=== PATIENT | female | born 1960 | race Caucasian/White ===

== ENCOUNTER 2017-02-01 08:36 | Emergency (ER) | payer BC, MEDICAID ==
[~2017-02-01] VITALS: Ht 180.3 cm; Wt 86.2 kg
[~2017-02-01 08:36] MED LIST: ALBU18; AMIT50TA3 PO; GABA300C PO; HYD2I IL; HYDR12.56 PO; NOR7.5T PO; OMEP20TA44 PO; PRAV20TA3 PO; TIZA4CAP5 PO; TOLT4CAP12 PO
[2017-02-01 09:09] VITALS: BP 155/83
== END 2017-02-01 09:29 | disposition home or self-care (01) ==
LOC: ER 08:36
DX: J44.9 Chronic obstructive pulmonary disease, unspecified (principal); I10 Essential (primary) hypertension; E78.5 Hyperlipidemia, unspecified; Z98.51 Tubal ligation status

== ENCOUNTER → 2017-08-21 | Outpatient (CLI) | payer BC, MEDICARE ==
[~2017-08-21] MED LIST changes: +TIZA4CAP PO; -TIZA4CAP5 PO
[2017-08-21 11:15] LABS: Urine Bacteria NONE SEEN /hpf (None Seen); Urine Blood Negative /uL (Negative); Urine Specific Gravity 1.011 (1.001-1.035); Urine WBC 9 /hpf (0 - 5)
[2017-08-21 11:23] LABS: Albumin 3.5 g/dL (3.4-5.0); BUN/Creatinine Ratio 14.3; Bilirubin, Total 0.4 mg/dL (0.2-1.0); Potassium 3.8 mmol/L (3.5-5.1); Total Protein 7.4 g/dL (6.4-8.2)
== END | disposition home or self-care (01) ==
LOC: LAB 10:25
PROVIDERS: ATTEND Family Medicine
DX: I10 Essential (primary) hypertension (principal); K21.9 Gastro-esophageal reflux disease without esophagitis; E78.4 Other hyperlipidemia; M54.42 Lumbago with sciatica, left side; J44.9 Chronic obstructive pulmonary disease, unspecified
CPT/HCPCS: 36415; 80053; 80061; 81001; 82607; 83036; 84443

== ENCOUNTER → 2019-01-19 | Outpatient (CLI) | payer MEDICARE, BC ==
[2019-01-19 09:38] LABS: Basophils # (auto) 0 uL; Basophils % (auto) 0.7 % (0.0-2.0); Eosinophils # (auto) 0.2 uL; Eosinophils % (auto) 3.3 % (0.0-7.0); Hematocrit 47.6 % (36.0-46.0); Lymphocytes # (auto) 1.8 uL; Lymphocytes % (auto) 31.6 % (10.0-50.0); Mean Corpuscular Hemoglobin 29.9 pg (28.0-32.0); Mean Corpuscular Hgb Conc. 33.6 g/dL (32.0-36.0); Monocytes # (auto) 0.4 uL; Monocytes % (auto) 7.4 % (0.0-12.0); Neutrophils # (auto) 3.2 uL; Nucleated Red Blood Cells % 0.1 %; Platelet Count (auto) 276 10^3/uL (140-450); Red Blood Cells 5.35 10^6/uL (4.0-5.20); White Blood Cell 5.6 10^3/uL (4.4-10.8)
[2019-01-19 09:43] LABS: Urine Amorphous Crystal MOD /hpf (None Seen); Urine Bacteria FEW /hpf (None Seen); Urine Blood Negative /uL (Negative); Urine Specific Gravity 1.013 (1.001-1.035); Urine WBC 4 /hpf (0 - 5)
[2019-01-19 10:11] LABS: Potassium 3.6 mmol/L (3.5-5.1)
[2019-01-19 10:18] LABS: Albumin 3.4 g/dL (3.4-5.0); BUN/Creatinine Ratio 15.3; Bilirubin, Total 0.4 mg/dL (0.2-1.0); Total Protein 6.9 g/dL (6.4-8.2)
== END | disposition home or self-care (01) ==
LOC: LAB 09:09
PROVIDERS: ATTEND Family Medicine
DX: I10 Essential (primary) hypertension (principal); E78.49 Other hyperlipidemia; M54.42 Lumbago with sciatica, left side; E66.01 Morbid (severe) obesity due to excess calories; Z96.89 Presence of other specified functional implants
CPT/HCPCS: 36415; 80053; 80061; 81001; 84443; 85025

== ENCOUNTER → 2020-06-19 | Outpatient (CLI) | payer BC ==
[~2020-06-19] MED LIST changes: +TOLT4CAP PO; -TOLT4CAP12 PO
[2020-06-19 08:32] LABS: Basophils # (auto) 0 10 ^3/uL (0-0.2); Basophils % (auto) 0.7 % (0.0-2.0); Eosinophils # (auto) 0.1 10 ^3/uL (0-0.8); Eosinophils % (auto) 1.7 % (0.0-7.0); Hematocrit 47.1 % (36.0-46.0); Hemoglobin 15.7 g/dL (12.2-16.2); Lymphocytes # (auto) 1.9 10 ^3/uL (0.4-5.4); Lymphocytes % (auto) 30.5 % (10.0-50.0); Mean Corpuscular Hemoglobin 28.7 pg (28.0-32.0); Mean Corpuscular Hgb Conc. 33.4 g/dL (32.0-36.0); Mean Corpuscular Volume 85.9 fL (80.0-100.0); Monocytes # (auto) 0.4 10 ^3/uL (0-1.3); Monocytes % (auto) 6.3 % (0.0-12.0); Neutrophils # (auto) 3.7 10 ^3/uL (1.6-8.6); Neutrophils % (auto) 60.8 % (37.0-80.0); Nucleated Red Blood Cells % 0.1 %; Platelet Count (auto) 307 10^3/uL (140-450); Red Blood Cells 5.48 10^6/uL (4.0-5.20); Red Cell Distribution Width 13.7 % (11.8-14.3); White Blood Cell 6.1 10^3/uL (4.4-10.8)
[2020-06-19 08:37] LABS: Urine Amorphous Crystal FEW /hpf (None Seen); Urine Bacteria NONE SEEN /hpf (None Seen); Urine Blood Negative /uL (Negative); Urine Specific Gravity 1.021 (1.001-1.035); Urine WBC 17 /hpf (0 - 5)
[2020-06-19 09:09] LABS: Potassium 3.9 mmol/L (3.5-5.1)
[2020-06-19 09:21] LABS: Albumin 3.5 g/dL (3.4-5.0); BUN/Creatinine Ratio 14.7; Bilirubin, Total 0.5 mg/dL (0.2-1.0); Calcium 9.5 mg/dL (8.5-10.1); Total Protein 7.4 g/dL (6.4-8.2)
== END | disposition home or self-care (01) ==
LOC: LAB 08:07
PROVIDERS: ATTEND Family Medicine
DX: I10 Essential (primary) hypertension (principal); E78.49 Other hyperlipidemia; M54.42 Lumbago with sciatica, left side; E66.3 Overweight; K21.9 Gastro-esophageal reflux disease without esophagitis; G47.00 Insomnia, unspecified; Z96.89 Presence of other specified functional implants
CPT/HCPCS: 36415; 80053; 80061; 81001; 82306; 84443; 85025

== ENCOUNTER 2020-07-26 08:02 | Emergency (ER) | payer BC, MEDICAID ==
[~2020-07-26] VITALS: Ht 175.3 cm; Wt 83.9 kg
[2020-07-26 08:14] VITALS: BP 144/92
[2020-07-26] MEDS ORDERED: KETOROLAC TROMETH 60MG/2ML VIAL IM ONE (08:30)
== END 2020-07-26 09:46 | disposition home or self-care (01) ==
LOC: ER 08:02
DX: S16.1XXA Strain of muscle, fascia and tendon at neck level, initial encounter (principal); S39.012A Strain of muscle, fascia and tendon of lower back, initial encounter; S46.911A Strain of unspecified muscle, fascia and tendon at shoulder and upper arm level, right arm, initial encounter; I10 Essential (primary) hypertension; E78.5 Hyperlipidemia, unspecified; Z79.899 Other long term (current) drug therapy; X58.XXXA Exposure to other specified factors, initial encounter; Y93.89 Activity, other specified; Y92.89 Other specified places as the place of occurrence of the external cause; Y99.8 Other external cause status
CPT/HCPCS: 70450; 72040; 72100; 73030; 96372; 99284; J1885

== ENCOUNTER → 2021-01-15 | Day surgery (SDC) | payer BC, MEDICAID ==
[2021-01-11 12:33] LABS: Basophils # (auto) 0 10 ^3/uL (0-0.2); Basophils % (auto) 0.4 % (0.0-2.0); Eosinophils # (auto) 0.2 10 ^3/uL (0-0.8); Eosinophils % (auto) 2.7 % (0.0-7.0); Hemoglobin 15.7 g/dL (12.2-16.2); Lymphocytes % (auto) 33.8 % (10.0-50.0); Mean Corpuscular Volume 85.3 fL (80.0-100.0); Monocytes # (auto) 0.4 10 ^3/uL (0-1.3); Monocytes % (auto) 7.1 % (0.0-12.0); Neutrophils # (auto) 3.2 10 ^3/uL (1.6-8.6); Nucleated Red Blood Cells % 0.1 %; Red Cell Distribution Width 13.9 % (11.8-14.3); White Blood Cell 5.8 10^3/uL (4.4-10.8)
[2021-01-11 12:56] LABS: Urine Bacteria NONE SEEN /hpf (None Seen); Urine Blood Negative /uL (Negative); Urine Specific Gravity 1.005 (1.001-1.035); Urine WBC 1 /hpf (0 - 5)
[2021-01-11 15:30] LABS: Albumin 3.4 g/dL (3.4-5.0); Calcium 9.3 mg/dL (8.5-10.1); Potassium 5.2 mmol/L (3.5-5.1)
[2021-01-11 15:33] LABS: BUN/Creatinine Ratio 15.8
[2021-01-11 15:35] LABS: Bilirubin, Total 0.4 mg/dL (0.2-1.0)
[~2021-01-15] VITALS: Ht 175.3 cm; Wt 90.7 kg
[~2021-01-15] MED LIST changes: -AMIT50TA3 PO; +AMIT50TA5 PO; +BUPIVACAINE 0.5% P/F INJ 10 ML VIAL ONE; +BUPIVACAINE HCL 50 ML ONE; +CYCL-839 PO; +DexAMETHasone SOD PHOS 10MG/1ML VIAL INJ ONE; +EPINEPHrine HCL 1 MG/1 ML AMP ONE; +HYDROmorphone HCL 2 MG/ML VL IV ONE; +IPRA0.00 IN; +LABETALOL HCL 5 MG/ML 4ML SYRINGE IV PRN; +LIDOCAINE 1% (LOCAL ANESTH.) PF 5ml SDV ONE; +MEPERIDINE HCL (25 MG/ML) 1ML VIAL ONE; +MIDAZOLAM HCL 2MG/2ML 2ml VIAL (1mg/ml) IV PRN; +MIDAZOLAM HCL 2MG/2ML 2ml VIAL (1mg/ml) ONE; +MORPHINE SULFATE 4 MG/ML SYR/VIAL IV PRN; +MORPHINE SULFATE INJECTION 2 MG/ML SYRG ONE; +ONDANSETRON HCL 4 MG/2 ML VIAL IV PRN; +ONDANSETRON HCL 4 MG/2 ML VIAL ONE; +PROPOFOL 10 MG/ML 20 ML IV ONE; +SUCCINYLCHOLINE CHLORIDE 20 MG/ML 10ML VIAL IV ONE; -TIZA4CAP PO; -TOLT4CAP PO; +ceFAZolin 1GM/50ML 100 ML IV ONE; +ePHEDrine SULFATE 50 MG/ML AMP IV PRN; +fentaNYL CITRATE 100 MCG/2 ML VL ONE; +fentaNYL CITRATE 5 ML ONE
[2021-01-15] MEDS: HYDROmorphone HCL 2 MG/ML VL IV PRN ×3 (12:23→12:53)
[2021-01-15 15:00] VITALS: BP 162/76
== END | disposition home or self-care (01) ==
LOC: SUR 08:19
PROVIDERS: ATTEND Orthopaedic Surgery Sports Medicine
DX: M75.121 Complete rotator cuff tear or rupture of right shoulder, not specified as traumatic (principal); S46.211A Strain of muscle, fascia and tendon of other parts of biceps, right arm, initial encounter; S43.401A Unspecified sprain of right shoulder joint, initial encounter; M94.211 Chondromalacia, right shoulder; M25.811 Other specified joint disorders, right shoulder; M65.9 Synovitis and tenosynovitis, unspecified; F41.9 Anxiety disorder, unspecified; F32.9 Major depressive disorder, single episode, unspecified; J44.9 Chronic obstructive pulmonary disease, unspecified; I10 Essential (primary) hypertension; E78.5 Hyperlipidemia, unspecified; I20.9 Angina pectoris, unspecified; G89.18 Other acute postprocedural pain; K21.9 Gastro-esophageal reflux disease without esophagitis; Z82.49 Family history of ischemic heart disease and other diseases of the circulatory system; Z80.9 Family history of malignant neoplasm, unspecified; Z98.890 Other specified postprocedural states; Z79.899 Other long term (current) drug therapy; Z20.822 Contact with and (suspected) exposure to COVID-19; X58.XXXA Exposure to other specified factors, initial encounter; Y93.89 Activity, other specified; Y92.89 Other specified places as the place of occurrence of the external cause; Y99.8 Other external cause status
CPT/HCPCS: 29826; 29827; 36415; 80053; 81001; 85025; C1713; J0171; J0330; J0690; J1100; J1170; J2175; J2250; J2270; J2405; J2704; J3010; J3490; U0003; A4565

== ENCOUNTER 2021-01-19 10:34 | Emergency (ER) | payer BC, MEDICAID ==
[~2021-01-19] VITALS: Ht 175.3 cm; Wt 90.7 kg
[~2021-01-19 10:34] MED LIST changes: -BUPIVACAINE 0.5% P/F INJ 10 ML VIAL ONE; -BUPIVACAINE HCL 50 ML ONE; -DexAMETHasone SOD PHOS 10MG/1ML VIAL INJ ONE; -EPINEPHrine HCL 1 MG/1 ML AMP ONE; -HYDROmorphone HCL 2 MG/ML VL IV ONE; -LABETALOL HCL 5 MG/ML 4ML SYRINGE IV PRN; -LIDOCAINE 1% (LOCAL ANESTH.) PF 5ml SDV ONE; -MEPERIDINE HCL (25 MG/ML) 1ML VIAL ONE; -MIDAZOLAM HCL 2MG/2ML 2ml VIAL (1mg/ml) IV PRN; -MIDAZOLAM HCL 2MG/2ML 2ml VIAL (1mg/ml) ONE; -MORPHINE SULFATE 4 MG/ML SYR/VIAL IV PRN; -MORPHINE SULFATE INJECTION 2 MG/ML SYRG ONE; -ONDANSETRON HCL 4 MG/2 ML VIAL IV PRN; -ONDANSETRON HCL 4 MG/2 ML VIAL ONE; -PROPOFOL 10 MG/ML 20 ML IV ONE; -SUCCINYLCHOLINE CHLORIDE 20 MG/ML 10ML VIAL IV ONE; -ceFAZolin 1GM/50ML 100 ML IV ONE; -ePHEDrine SULFATE 50 MG/ML AMP IV PRN; -fentaNYL CITRATE 100 MCG/2 ML VL ONE; -fentaNYL CITRATE 5 ML ONE
[2021-01-19] MEDS ORDERED: PROMETHAZINE HCL 25 MG/ML 1ML IM ONE (12:00)
[2021-01-19] MEDS ORDERED: MEPERIDINE HCL (50 MG/ML) 1 ML VIAL IM ONE (12:00)
[2021-01-19 12:32] VITALS: BP 135/84
== END 2021-01-19 12:34 | disposition home or self-care (01) ==
LOC: ER 10:34
DX: G89.18 Other acute postprocedural pain (principal); M25.511 Pain in right shoulder; I10 Essential (primary) hypertension; E78.5 Hyperlipidemia, unspecified; J44.9 Chronic obstructive pulmonary disease, unspecified; Z98.51 Tubal ligation status
CPT/HCPCS: 96372; 99284; J2175; J2550

== ENCOUNTER → 2021-01-23 | Outpatient (CLI) | payer BC, MEDICAID ==
[~2021-01-23] MED LIST changes: +DOXY-286 PO; +LISI20TA28 PO; +PERCOT PO
== END | disposition home or self-care (01) ==
LOC: LAB 11:48
PROVIDERS: ATTEND Orthopaedic Surgery Sports Medicine
DX: Z98.890 Other specified postprocedural states (principal)
CPT/HCPCS: 87075; 87077; 87186; 87205

== ENCOUNTER 2021-02-06 06:19 | Inpatient (IN) | payer BC, MEDICAID ==
[2021-02-04 15:00] LABS: Basophils # (auto) 0.1 10 ^3/uL (0-0.2); Eosinophils # (auto) 0.1 10 ^3/uL (0-0.8); Eosinophils % (auto) 0.9 % (0.0-7.0); Lymphocytes # (auto) 2.6 10 ^3/uL (0.4-5.4); Monocytes # (auto) 0.6 10 ^3/uL (0-1.3)
[2021-02-04 15:01] LABS: Basophils % (auto) 0.8 % (0.0-2.0); Hematocrit 38.7 % (36.0-46.0); Lymphocytes % (auto) 27.2 % (10.0-50.0); Mean Corpuscular Hemoglobin 27.6 pg (28.0-32.0); Mean Corpuscular Hgb Conc. 33.7 g/dL (32.0-36.0); Mean Corpuscular Volume 81.7 fL (80.0-100.0); Monocytes % (auto) 6.6 % (0.0-12.0); Neutrophils # (auto) 6.1 10 ^3/uL (1.6-8.6); Neutrophils % (auto) 64.5 % (37.0-80.0); Red Blood Cells 4.73 10^6/uL (4.0-5.20); White Blood Cell 9.4 10^3/uL (4.4-10.8)
[2021-02-04 15:08] LABS: INR 1.07 (0.9-1.15); Partial Thromboplastin Time 30.3 sec (23.6-33.0)
[2021-02-04 15:57] LABS: Urine Bacteria NONE SEEN /hpf (None Seen); Urine Blood Negative /uL (Negative); Urine Specific Gravity 1.014 (1.001-1.035); Urine WBC 14 /hpf (0 - 5)
[2021-02-04 16:07] LABS: Potassium 4.4 mmol/L (3.5-5.1)
[2021-02-04 16:20] LABS: Albumin 2.6 g/dL (3.4-5.0); BUN/Creatinine Ratio 15.5; Bilirubin, Total 0.3 mg/dL (0.2-1.0); CRP High Sensitivity 5.82 mg/dL (< 0.3); Calcium 8.9 mg/dL (8.5-10.1); Total Protein 7.5 g/dL (6.4-8.2)
[~2021-02-06] VITALS: Ht 175.3 cm; Wt 96.0 kg
[~2021-02-06 06:19] MED LIST changes: -ALBU18; -DOXY-286 PO; -LISI20TA28 PO; -PERCOT PO
[2021-02-06] MEDS ORDERED: SUCCINYLCHOLINE CHLORIDE 20 MG/ML 10ML VIAL IV ONE (06:55)
[2021-02-06] MEDS ORDERED: ROCURONIUM 10MG/ML 10ML VIAL IV ONE (06:55)
[2021-02-06] MEDS ORDERED: MORPHINE SULFATE 4 MG/ML SYR/VIAL IV PRN (07:15)
[2021-02-06] MEDS ORDERED: METOCLOPRAMIDE HCL 5MG/ml INJ 2ml VIAL IV PRN (07:15)
[2021-02-06] MEDS ORDERED: EPINEPHrine HCL 1 MG/1 ML AMP ONE ×2 (07:17→08:49)
[2021-02-06] MEDS ORDERED: ceFAZolin 1GM/50ML 100 ML IV ONE (07:24)
[2021-02-06] MEDS ORDERED: BUPIVACAINE 0.5% MPF INJ 30ML SDV IJ ONE (07:34)
[2021-02-06] MEDS ORDERED: fentaNYL CITRATE 100 MCG/2 ML VL ONE (07:45)
[2021-02-06] MEDS ORDERED: MIDAZOLAM HCL 2MG/2ML 2ml VIAL (1mg/ml) ONE (07:45)
[2021-02-06] MEDS ORDERED: ONDANSETRON HCL 4 MG/2 ML VIAL ONE (07:46)
[2021-02-06] MEDS ORDERED: PROPOFOL 10 MG/ML 20 ML IV ONE (07:46)
[2021-02-06] MEDS: HYDROmorphone HCL 2 MG/ML VL IV PRN ×3 (09:35→11:02)
[2021-02-06] MEDS ORDERED: NITROGLYCERIN 0.4 MG SL TAB SL PRN (10:30)
[2021-02-06] MEDS: MORPHINE SULFATE INJECTION 2 MG/ML SYRG IV PRN ×3 (12:10→21:06)
[2021-02-06] MEDS ORDERED: VANCOMYCIN PER PHARMACY 0 MG IV SCH (12:30)
[2021-02-06] MEDS ORDERED: hydrALAZINE HCL 20 MG/ML VL IV PRN (13:15)
[2021-02-06] MEDS ORDERED: DOCUSATE SOD 100 MG CAP PO PRN (13:15)
[2021-02-06] MEDS ORDERED: CYCLOBENZAPRINE HCL 10 MG TAB PO PRN (13:15)
[2021-02-06] MEDS: GABAPENTIN 300 MG CAP PO SCH ×2 (14:00→21:09)
[2021-02-06] MEDS ORDERED: VANCOMYCIN HCL 1000 MG VL ONE (16:19)
[2021-02-06] MEDS: VANCOMYCIN 1GM/250ML 250 ML IV SCH (16:34)
[2021-02-06 17:57] VITALS: BP 165/78
[2021-02-06 21:02] LABS: Urine Bacteria NONE SEEN /hpf (None Seen); Urine Blood Negative /uL (Negative); Urine Specific Gravity 1.015 (1.001-1.035); Urine WBC 5 /hpf (0 - 5)
[2021-02-06] MEDS: AMITRIPTYLINE HCL 25 MG TAB PO SCH (21:09)
[2021-02-06] MEDS: PRAVASTATIN SODIUM 20 MG TAB PO SCH (21:10)
[2021-02-06 21:49] VITALS: BP 134/66
[2021-02-06] MEDS ORDERED: PATIENTS OWN MEDICATION (Amitriptyline Hcl 50 MG) PO SCH (22:00)
[2021-02-06] MEDS ORDERED: FAMOTIDINE 20 MG TAB PO SCH (22:00)
[2021-02-07 05:00] VITALS: BP 130/70
[2021-02-07] MEDS: VANCOMYCIN 1GM/250ML 250 ML IV SCH ×2 (06:31→20:05)
[2021-02-07] MEDS: GABAPENTIN 300 MG CAP PO SCH ×3 (06:31→21:47)
[2021-02-07] MEDS: MORPHINE SULFATE INJECTION 2 MG/ML SYRG IV PRN (06:32)
[2021-02-07 06:47] LABS: Basophils # (auto) 0 10 ^3/uL (0-0.2); Eosinophils # (auto) 0 10 ^3/uL (0-0.8); Eosinophils % (auto) 0.2 % (0.0-7.0); Lymphocytes # (auto) 2.2 10 ^3/uL (0.4-5.4); Monocytes # (auto) 0.8 10 ^3/uL (0-1.3); Nucleated Red Blood Cells % 0.1 %; Red Blood Cells 4.75 10^6/uL (4.0-5.20)
[2021-02-07 06:52] LABS: Basophils % (auto) 0.2 % (0.0-2.0); Hematocrit 39.2 % (36.0-46.0); Hemoglobin 13.2 g/dL (12.2-16.2); Lymphocytes % (auto) 22.3 % (10.0-50.0); Mean Corpuscular Hemoglobin 27.8 pg (28.0-32.0); Mean Corpuscular Hgb Conc. 33.7 g/dL (32.0-36.0); Mean Corpuscular Volume 82.7 fL (80.0-100.0); Monocytes % (auto) 7.5 % (0.0-12.0); Neutrophils % (auto) 69.8 % (37.0-80.0); Red Cell Distribution Width 14.1 % (11.8-14.3); White Blood Cell 10.1 10^3/uL (4.4-10.8)
[2021-02-07 07:06] LABS: Calcium 9.2 mg/dL (8.5-10.1)
[2021-02-07 07:09] LABS: BUN/Creatinine Ratio 16.7
[2021-02-07 09:00] VITALS: BP 151/75
[2021-02-07] MEDS: PANTOPRAZOLE 40 MG TAB PO SCH (09:06)
[2021-02-07] MEDS: HCTZ 25 MG TAB PO SCH (09:06)
[2021-02-07] MEDS ORDERED: VANCOMYCIN 1GM/250ML 250 ML IV SCH (09:45)
[2021-02-07] MEDS ORDERED: LISINOPRIL 10 MG TAB PO ONE (11:45)
[2021-02-07 13:00] VITALS: BP 138/71
[2021-02-07] MEDS: HYDROcodone-ACET 7.5/325MG TAB PO PRN (13:10)
[2021-02-07] MEDS ORDERED: KETOROLAC TROMETH 30 MG/ML 1ML VIAL IV PRN (16:00)
[2021-02-07 17:00] VITALS: BP 150/69
[2021-02-07] MEDS ORDERED: LIDOCAINE 1% (LOCAL ANESTH.) PF 5ml SDV ID ONE (18:45)
[2021-02-07] MEDS: KETOROLAC TROMETH 30 MG/ML 1ML VIAL IV PRN (20:18)
[2021-02-07] MEDS: PRAVASTATIN SODIUM 20 MG TAB PO SCH (21:47)
[2021-02-07] MEDS: SODIUM CHLOR 0.9% PF (SALINE LOCK) 10ML VIAL/SYR IV SCH (21:47)
[2021-02-07] MEDS: AMITRIPTYLINE HCL 25 MG TAB PO SCH (21:47)
[2021-02-07 22:00] VITALS: BP 146/72
[2021-02-08] MEDS: HYDROcodone-ACET 7.5/325MG TAB PO PRN ×2 (04:30→13:27)
[2021-02-08] MEDS: VANCOMYCIN 1GM/250ML 250 ML IV SCH ×2 (04:57→17:04)
[2021-02-08 05:00] VITALS: BP 139/80
[2021-02-08] MEDS: GABAPENTIN 300 MG CAP PO SCH ×2 (06:21→14:55)
[2021-02-08 09:00] VITALS: BP 160/102
[2021-02-08] MEDS: PANTOPRAZOLE 40 MG TAB PO SCH (09:10)
[2021-02-08] MEDS: KETOROLAC TROMETH 30 MG/ML 1ML VIAL IV PRN (09:10)
[2021-02-08] MEDS: HCTZ 25 MG TAB PO SCH (09:11)
[2021-02-08] MEDS: SODIUM CHLOR 0.9% PF (SALINE LOCK) 10ML VIAL/SYR IV SCH (09:11)
[2021-02-08 09:46] LABS: Hematocrit 38.5 % (36.0-46.0); Mean Corpuscular Hemoglobin 28.2 pg (28.0-32.0); Mean Corpuscular Hgb Conc. 33.8 g/dL (32.0-36.0); Mean Corpuscular Volume 83.5 fL (80.0-100.0); Red Blood Cells 4.61 10^6/uL (4.0-5.20); Red Cell Distribution Width 14.1 % (11.8-14.3); White Blood Cell 8.7 10^3/uL (4.4-10.8)
[2021-02-08 09:48] LABS: Band Neutrophils % (manual) 0; Basophils % (manual) 0 (0.0-2.0); Blast Cells 0; Metamyelocytes % 0; Myelocytes % 0; Promyelocytes % 0; Reactive Lymphocytes 0
[2021-02-08 09:51] LABS: Lymphocytes % (manual) 24 (10.0-50.0)
[2021-02-08 09:52] LABS: Eosinophils % (manual) 1 (0-7); Monocytes % (manual) 9 (0-12)
[2021-02-08] MEDS ORDERED: LISINOPRIL 10 MG TAB PO SCH (10:00)
[2021-02-08 11:14] LABS: BUN/Creatinine Ratio 21.1; Calcium 8.6 mg/dL (8.5-10.1)
[2021-02-08 12:30] VITALS: BP 141/61
[2021-02-08 17:00] VITALS: BP 145/58
[2021-02-09] MEDS ORDERED: VANCOMYCIN 1GM/250ML 250 ML IV SCH (04:00)
== END 2021-02-08 19:00 | disposition home or self-care (01) | DRG 558 ==
LOC: SUR 06:19 → OVERFLOW 10:20 → WEST WING 17:40
PROVIDERS: ADMIT Orthopaedic Surgery Sports Medicine; ATTEND Internal Medicine
PROC: 0R9J4ZZ Drainage of Right Shoulder Joint, Percutaneous Endoscopic Approach (ICD-10-PCS; principal; 2021-02-06 07:41)
PROC: 02HV33Z Insertion of Infusion Device into Superior Vena Cava, Percutaneous Approach (ICD-10-PCS; 2021-02-08)
DX: M75.101 Unspecified rotator cuff tear or rupture of right shoulder, not specified as traumatic (principal); G89.29 Other chronic pain; I10 Essential (primary) hypertension; E78.5 Hyperlipidemia, unspecified; E66.9 Obesity, unspecified; B95.62 Methicillin resistant Staphylococcus aureus infection as the cause of diseases classified elsewhere; Z20.822 Contact with and (suspected) exposure to COVID-19; Z82.49 Family history of ischemic heart disease and other diseases of the circulatory system; Z80.8 Family history of malignant neoplasm of other organs or systems; Z80.0 Family history of malignant neoplasm of digestive organs; Z68.31 Body mass index [BMI] 31.0-31.9, adult
CPT/HCPCS: 36415; 36569; 71045; 80048; 80053; 80202; 81001; 85007; 85025; 85027; 85610; 85652; 85730; 86141; 87070; 87075; 87077; 87186; 87205; G0378; J0171; J0330; J0690; J1885; J2250; J2405; J2704; J3490

== ENCOUNTER → 2021-03-19 | Day surgery (SDC) | payer BC, MEDICAID ==
[2021-03-18 16:40] LABS: Basophils # (auto) 0.1 10 ^3/uL (0-0.2); Eosinophils # (auto) 0.2 10 ^3/uL (0-0.8); Eosinophils % (auto) 2.1 % (0.0-7.0); Mean Corpuscular Hemoglobin 26.4 pg (28.0-32.0); Monocytes # (auto) 0.5 10 ^3/uL (0-1.3); Neutrophils # (auto) 4.6 10 ^3/uL (1.6-8.6); Neutrophils % (auto) 59.1 % (37.0-80.0); White Blood Cell 7.8 10^3/uL (4.4-10.8)
[2021-03-18 16:43] LABS: Basophils % (auto) 1.4 % (0.0-2.0); Hematocrit 42.9 % (36.0-46.0); Lymphocytes # (auto) 2.4 10 ^3/uL (0.4-5.4); Lymphocytes % (auto) 30.9 % (10.0-50.0); Mean Corpuscular Hgb Conc. 32.7 g/dL (32.0-36.0); Mean Corpuscular Volume 80.8 fL (80.0-100.0); Monocytes % (auto) 6.5 % (0.0-12.0); Red Cell Distribution Width 14.3 % (11.8-14.3)
[2021-03-18 16:44] LABS: Urine Bacteria NONE SEEN /hpf (None Seen); Urine Blood Negative /uL (Negative); Urine Specific Gravity 1.008 (1.001-1.035); Urine WBC <1 /hpf (0 - 5)
[2021-03-18 16:58] LABS: Partial Thromboplastin Time 27.6 sec (23.6-33.0)
[2021-03-18 17:28] LABS: Calcium 9.4 mg/dL (8.5-10.1); Potassium 4.4 mmol/L (3.5-5.1)
[2021-03-18 17:34] LABS: Albumin 3.5 g/dL (3.4-5.0); BUN/Creatinine Ratio 21.2; Bilirubin, Total 0.2 mg/dL (0.2-1.0); Total Protein 7.7 g/dL (6.4-8.2)
[~2021-03-19] VITALS: Ht 175.3 cm; Wt 90.7 kg
[~2021-03-19] MED LIST changes: +BUPIVACAINE 0.5% MPF INJ 30ML SDV IJ ONE; +BUPIVACAINE W/ EPINEPH 0.5% INJ 50ML MDV IJ ONE; +DOXY-286 PO; +EPINEPHrine HCL 1 MG/1 ML AMP ONE; -HYD2I IL; -HYDR12.56 PO; +HYDROmorphone HCL 2 MG/ML VL IV PRN; +LIDOCAINE 1% (LOCAL ANESTH.) PF 5ml SDV ONE; +LIDOCAINE 2% (LOCAL ANESTH.) PF 5ml SDV ONE; +LISI20TA28 PO; +MIDAZOLAM HCL 2MG/2ML 2ml VIAL (1mg/ml) ONE; +ONDANSETRON HCL 4 MG/2 ML VIAL IV PRN; +ONDANSETRON HCL 4 MG/2 ML VIAL ONE; +PERCOT PO; +PROPOFOL 10 MG/ML 20 ML IV ONE; +ceFAZolin 1GM/50ML 100 ML IV ONE; +fentaNYL CITRATE 5 ML ONE
[2021-03-19] MEDS: HYDROmorphone HCL 2 MG/ML VL IV PRN ×4 (15:20→15:50)
[2021-03-19 17:00] VITALS: BP 138/66
== END | disposition home or self-care (01) ==
LOC: SUR 11:00
PROVIDERS: ATTEND Orthopaedic Surgery Sports Medicine
DX: T81.40XA Infection following a procedure, unspecified, initial encounter (principal); M75.101 Unspecified rotator cuff tear or rupture of right shoulder, not specified as traumatic; S46.091A Other injury of muscle(s) and tendon(s) of the rotator cuff of right shoulder, initial encounter; M65.9 Synovitis and tenosynovitis, unspecified; L92.3 Foreign body granuloma of the skin and subcutaneous tissue; G89.29 Other chronic pain; M94.211 Chondromalacia, right shoulder; I10 Essential (primary) hypertension; J44.9 Chronic obstructive pulmonary disease, unspecified; F41.9 Anxiety disorder, unspecified; F32.9 Major depressive disorder, single episode, unspecified; K21.9 Gastro-esophageal reflux disease without esophagitis; E78.5 Hyperlipidemia, unspecified; Z98.890 Other specified postprocedural states; Z82.49 Family history of ischemic heart disease and other diseases of the circulatory system; Z80.8 Family history of malignant neoplasm of other organs or systems; Z20.822 Contact with and (suspected) exposure to COVID-19; Z87.891 Personal history of nicotine dependence; Z79.899 Other long term (current) drug therapy; X58.XXXA Exposure to other specified factors, initial encounter; Y92.89 Other specified places as the place of occurrence of the external cause; Y93.89 Activity, other specified; Y99.8 Other external cause status; Y82.8 Other medical devices associated with adverse incidents
CPT/HCPCS: 23030; 36415; 80053; 81001; 85025; 85610; 85730; 87070; 87075; 87077; 87186; 87205; 88305; J0171; J0690; J1170; J2001; J2250; J2405; J2704; J3010; J3490; U0003; A4565

== ENCOUNTER → 2021-04-02 | Outpatient (CLI) | payer BC ==
[~2021-04-02] MED LIST changes: -BUPIVACAINE 0.5% MPF INJ 30ML SDV IJ ONE; -BUPIVACAINE W/ EPINEPH 0.5% INJ 50ML MDV IJ ONE; -EPINEPHrine HCL 1 MG/1 ML AMP ONE; -HYDROmorphone HCL 2 MG/ML VL IV PRN; -LIDOCAINE 1% (LOCAL ANESTH.) PF 5ml SDV ONE; -LIDOCAINE 2% (LOCAL ANESTH.) PF 5ml SDV ONE; -MIDAZOLAM HCL 2MG/2ML 2ml VIAL (1mg/ml) ONE; -ONDANSETRON HCL 4 MG/2 ML VIAL IV PRN; -ONDANSETRON HCL 4 MG/2 ML VIAL ONE; -PROPOFOL 10 MG/ML 20 ML IV ONE; -ceFAZolin 1GM/50ML 100 ML IV ONE; -fentaNYL CITRATE 5 ML ONE
[2021-04-02 09:53] LABS: Basophils # (auto) 0 10 ^3/uL (0-0.2); Basophils % (auto) 0.6 % (0.0-2.0); Eosinophils # (auto) 0.2 10 ^3/uL (0-0.8); Hematocrit 39.5 % (36.0-46.0); Hemoglobin 13.1 g/dL (12.2-16.2); Lymphocytes # (auto) 1.7 10 ^3/uL (0.4-5.4); Lymphocytes % (auto) 27.1 % (10.0-50.0); Mean Corpuscular Hemoglobin 26.7 pg (28.0-32.0); Mean Corpuscular Hgb Conc. 33.2 g/dL (32.0-36.0); Mean Corpuscular Volume 80.3 fL (80.0-100.0); Monocytes # (auto) 0.4 10 ^3/uL (0-1.3); Monocytes % (auto) 6.4 % (0.0-12.0); Neutrophils % (auto) 62.9 % (37.0-80.0); Red Blood Cells 4.92 10^6/uL (4.0-5.20); Red Cell Distribution Width 14.5 % (11.8-14.3); White Blood Cell 6.3 10^3/uL (4.4-10.8)
[2021-04-02 10:21] LABS: Albumin 3.1 g/dL (3.4-5.0); BUN/Creatinine Ratio 20.8; Bilirubin, Total 0.2 mg/dL (0.2-1.0); CRP High Sensitivity 0.72 mg/dL (< 0.3); Calcium 9.2 mg/dL (8.5-10.1); Total Protein 7.4 g/dL (6.4-8.2)
== END | disposition home or self-care (01) ==
LOC: LAB 08:40
PROVIDERS: ATTEND Specialist
DX: M00.011 Staphylococcal arthritis, right shoulder (principal)
CPT/HCPCS: 36415; 80053; 85025; 85652; 86141; 87040

== ENCOUNTER → 2021-05-28 | Outpatient (CLI) | payer BC ==
[2021-05-28 14:50] LABS: Eosinophils # (auto) 0.2 10 ^3/uL (0-0.8); Eosinophils % (auto) 2.4 % (0.0-7.0); Lymphocytes # (auto) 1.9 10 ^3/uL (0.4-5.4)
[2021-05-28 14:52] LABS: Basophils # (auto) 0 10 ^3/uL (0-0.2); Basophils % (auto) 0.6 % (0.0-2.0); Hematocrit 42.7 % (36.0-46.0); Lymphocytes % (auto) 24.5 % (10.0-50.0); Mean Corpuscular Hgb Conc. 32.9 g/dL (32.0-36.0); Monocytes # (auto) 0.5 10 ^3/uL (0-1.3); Monocytes % (auto) 6.5 % (0.0-12.0); Nucleated Red Blood Cells % 0.1 %; Red Cell Distribution Width 14.6 % (11.8-14.3); White Blood Cell 7.6 10^3/uL (4.4-10.8)
[2021-05-28 15:23] LABS: BUN/Creatinine Ratio 18.3; Calcium 9.3 mg/dL (8.5-10.1); Potassium 4.1 mmol/L (3.5-5.1)
[2021-05-28 15:45] LABS: CRP High Sensitivity 2.19 mg/dL (< 0.3)
== END | disposition home or self-care (01) ==
LOC: LAB 14:35
PROVIDERS: ATTEND Specialist
DX: M00.011 Staphylococcal arthritis, right shoulder (principal)
CPT/HCPCS: 36415; 80048; 85025; 85652; 86141

== ENCOUNTER → 2021-06-27 | Outpatient (CLI) | payer BC ==
[2021-06-27 11:10] LABS: Basophils # (auto) 0 10 ^3/uL (0-0.2); Eosinophils # (auto) 0.3 10 ^3/uL (0-0.8); Eosinophils % (auto) 4.7 % (0.0-7.0); Lymphocytes # (auto) 2.2 10 ^3/uL (0.4-5.4); Monocytes # (auto) 0.5 10 ^3/uL (0-1.3); Nucleated Red Blood Cells % 0.1 %
[2021-06-27 11:11] LABS: Basophils % (auto) 0.4 % (0.0-2.0); Hematocrit 42.6 % (36.0-46.0); Hemoglobin 13.8 g/dL (12.2-16.2); Lymphocytes % (auto) 34.3 % (10.0-50.0); Mean Corpuscular Hemoglobin 25.9 pg (28.0-32.0); Mean Corpuscular Hgb Conc. 32.4 g/dL (32.0-36.0); Mean Corpuscular Volume 79.9 fL (80.0-100.0); Neutrophils # (auto) 3.4 10 ^3/uL (1.6-8.6); Neutrophils % (auto) 52.6 % (37.0-80.0); Red Blood Cells 5.34 10^6/uL (4.0-5.20); Red Cell Distribution Width 15.4 % (11.8-14.3); White Blood Cell 6.5 10^3/uL (4.4-10.8)
[2021-06-27 11:55] LABS: Albumin 3.4 g/dL (3.4-5.0); Potassium 4.7 mmol/L (3.5-5.1)
[2021-06-27 12:00] LABS: BUN/Creatinine Ratio 24.4; Bilirubin, Total 0.2 mg/dL (0.2-1.0); CRP High Sensitivity 0.3 mg/dL (< 0.3); Total Protein 7.5 g/dL (6.4-8.2)
== END | disposition home or self-care (01) ==
LOC: LAB 10:42
PROVIDERS: ATTEND Specialist
DX: M00.011 Staphylococcal arthritis, right shoulder (principal); B95.62 Methicillin resistant Staphylococcus aureus infection as the cause of diseases classified elsewhere
CPT/HCPCS: 36415; 80053; 85025; 85652; 86141

== ENCOUNTER → 2021-08-07 | Outpatient (CLI) | payer BC | END | disposition home or self-care (01) | LOC: XYW 08:28 | PROVIDERS: ATTEND Student in an Organized Health Care Education/Training Program | DX: I73.9 Peripheral vascular disease, unspecified (principal) | CPT/HCPCS: 93925 ==

== ENCOUNTER → 2022-04-14 | Outpatient (CLI) | payer MEDICARE ==
[2022-04-14 12:35] LABS: Basophils # (auto) 0 10 ^3/uL (0-0.2); Basophils % (auto) 0.6 % (0.0-2.0); Eosinophils # (auto) 0.2 10 ^3/uL (0-0.8); Eosinophils % (auto) 2.6 % (0.0-7.0); Hematocrit 48.9 % (36.0-46.0); Hemoglobin 16.3 g/dL (12.2-16.2); Lymphocytes # (auto) 2.1 10 ^3/uL (0.4-5.4); Lymphocytes % (auto) 32.7 % (10.0-50.0); Mean Corpuscular Hemoglobin 28.5 pg (28.0-32.0); Mean Corpuscular Hgb Conc. 33.3 g/dL (32.0-36.0); Mean Corpuscular Volume 85.4 fL (80.0-100.0); Monocytes # (auto) 0.5 10 ^3/uL (0-1.3); Monocytes % (auto) 7.6 % (0.0-12.0); Neutrophils # (auto) 3.6 10 ^3/uL (1.6-8.6); Neutrophils % (auto) 56.5 % (37.0-80.0); Nucleated Red Blood Cells % 0.1 %; Red Blood Cells 5.73 10^6/uL (4.0-5.20); Red Cell Distribution Width 13.1 % (11.8-14.3); White Blood Cell 6.4 10^3/uL (4.4-10.8)
[2022-04-14 13:18] LABS: Albumin 3.8 g/dL (3.4-5.0); Calcium 9.6 mg/dL (8.5-10.1); Potassium 4.1 mmol/L (3.5-5.1)
[2022-04-14 13:23] LABS: BUN/Creatinine Ratio 14.3; Bilirubin, Total 0.4 mg/dL (0.2-1.0); Total Protein 7.8 g/dL (6.4-8.2)
== END | disposition home or self-care (01) ==
LOC: LAB 12:02
PROVIDERS: ATTEND Student in an Organized Health Care Education/Training Program
DX: Z12.11 Encounter for screening for malignant neoplasm of colon (principal); I10 Essential (primary) hypertension; E78.2 Mixed hyperlipidemia; E66.9 Obesity, unspecified
CPT/HCPCS: 36415; 80053; 80061; 82274; 85025

== ENCOUNTER → 2022-07-07 | Outpatient (CLI) | payer MEDICARE, OTHER ==
[2022-07-07 15:04] LABS: Urine Bacteria FEW /hpf (None Seen); Urine Blood Negative /uL (Negative); Urine Specific Gravity 1.015 (1.001-1.035); Urine WBC 42 /hpf (0 - 5)
== END | disposition home or self-care (01) ==
LOC: LAB 14:44
PROVIDERS: ATTEND Student in an Organized Health Care Education/Training Program
DX: N39.0 Urinary tract infection, site not specified (principal)
CPT/HCPCS: 81001; 87086

== ENCOUNTER 2022-07-19 07:48 | Emergency (ER) | payer MEDICARE, OTHER ==
[~2022-07-19] VITALS: Ht 175.3 cm; Wt 95.9 kg
[2022-07-19 08:35] LABS: Urine Bacteria FEW /hpf (None Seen); Urine Blood Negative /uL (Negative); Urine Specific Gravity 1.002 (1.001-1.035); Urine WBC 1 /hpf (0 - 5)
[2022-07-19 08:36] LABS: Basophils # (auto) 0 10 ^3/uL (0-0.2); Basophils % (auto) 0.2 % (0.0-2.0); Eosinophils # (auto) 0.1 10 ^3/uL (0-0.8); Hemoglobin 15.6 g/dL (12.2-16.2); Lymphocytes # (auto) 1.2 10 ^3/uL (0.4-5.4); Lymphocytes % (auto) 12.2 % (10.0-50.0); Mean Corpuscular Hemoglobin 28.6 pg (28.0-32.0); Mean Corpuscular Hgb Conc. 33.2 g/dL (32.0-36.0); Monocytes # (auto) 0.5 10 ^3/uL (0-1.3); Monocytes % (auto) 5.5 % (0.0-12.0); Neutrophils # (auto) 7.7 10 ^3/uL (1.6-8.6); Neutrophils % (auto) 81.1 % (37.0-80.0); Nucleated Red Blood Cells % 0.4 %; Red Blood Cells 5.47 10^6/uL (4.0-5.20); Red Cell Distribution Width 13.9 % (11.8-14.3); White Blood Cell 9.5 10^3/uL (4.4-10.8)
[2022-07-19 08:43] LABS: Albumin 3.8 g/dL (3.4-5.0); Calcium 9.4 mg/dL (8.5-10.1); Potassium 3.8 mmol/L (3.5-5.1)
[2022-07-19] MEDS ORDERED: SODIUM CHLORIDE 0.9% 1,000 ML IV ONE ×2 (08:45)
[2022-07-19 08:48] LABS: Alcohol, Urine < 3.0 mg/dL (0-10); Amphetamine Screen, Urine NEGATIVE (NEGATIVE); Barbiturate Scree,Urine NEGATIVE (NEGATIVE); Benzodiazephine Screen, Urine NEGATIVE (NEGATIVE); Cannabinoid Screen, Urine POSITIVE (NEGATIVE); Cocaine Screen, Urine NEGATIVE (NEGATIVE); Opiate Scree,Urine NEGATIVE (NEGATIVE); Phencyclidine Screen, Urine NEGATIVE (NEGATIVE)
[2022-07-19 08:48] LABS: BUN/Creatinine Ratio 13.8 (10.0-20.0); Bilirubin, Total 0.4 mg/dL (0.2-1.0); Total Protein 7.8 g/dL (6.4-8.2)
[2022-07-19 10:00] VITALS: BP 153/111
== END 2022-07-19 10:33 | disposition home or self-care (01) ==
LOC: ER 07:48
DX: E86.0 Dehydration (principal); F41.9 Anxiety disorder, unspecified; J44.9 Chronic obstructive pulmonary disease, unspecified; F32.9 Major depressive disorder, single episode, unspecified; E78.5 Hyperlipidemia, unspecified; I10 Essential (primary) hypertension
CPT/HCPCS: 36415; 80053; 80307; 81001; 83605; 85025; 87040; 96360; 99283; J7030

== ENCOUNTER 2023-01-30 11:46 | Emergency (ER) | payer MEDICARE, OTHER ==
[~2023-01-30] VITALS: Ht 175.3 cm; Wt 89.0 kg
[~2023-01-30 11:46] MED LIST changes: +AMIT50TA10 PO; -AMIT50TA5 PO; -LISI20TA28 PO; +LISI20TA56 PO
[2023-01-30 13:26] LABS: Basophils # (auto) 0 10 ^3/uL (0-0.2); Basophils % (auto) 0.1 % (0.0-2.0); Eosinophils # (auto) 0 10 ^3/uL (0-0.8); Eosinophils % (auto) 0.1 % (0.0-7.0); Hematocrit 45.2 % (36.0-46.0); Hemoglobin 15.1 g/dL (12.2-16.2); Lymphocytes # (auto) 1.2 10 ^3/uL (0.4-5.4); Lymphocytes % (auto) 8.4 % (10.0-50.0); Mean Corpuscular Hemoglobin 28.8 pg (28.0-32.0); Mean Corpuscular Hgb Conc. 33.4 g/dL (32.0-36.0); Mean Corpuscular Volume 86.2 fL (80.0-100.0); Monocytes # (auto) 1.2 10 ^3/uL (0-1.3); Monocytes % (auto) 8.3 % (0.0-12.0); Neutrophils # (auto) 11.6 10 ^3/uL (1.6-8.6); Neutrophils % (auto) 83.1 % (37.0-80.0); Nucleated Red Blood Cells % 0.2 %; Red Blood Cells 5.25 10^6/uL (4.0-5.20); Red Cell Distribution Width 13.8 % (11.8-14.3)
[2023-01-30] MEDS ORDERED: IOHEXOL 350 MG/ML 100ML IJ ONE ×2 (13:33→17:45)
[2023-01-30 13:45] LABS: Alanine Aminotransferase 17 U/L (7-40); Albumin 4.6 g/dL (3.2-4.8); Alkaline Phosphatase 125 U/L (46-116); Anion Gap 6 (5-15); Aspartate Aminotransferase 28 U/L (13-40); BUN/Creatinine Ratio 12.2 (10.0-20.0); Bilirubin, Total 0.6 mg/dL (0.2-1.0); Blood Urea Nitrogen 9 mg/dL (9-23); Calcium 10.1 mg/dL (8.5-10.1); Carbon Dioxide 28 mmol/L (20-30); Chloride 100 mmol/L (98-107); Glucose 104 mg/dL (74-106); Sodium 134 mmol/L (136-145); Total Protein 7.1 g/dL (5.7-8.2)
[2023-01-30 21:15] VITALS: BP 101/65; PULSE 85; RESP 18; TEMP 98; O2SAT 98
[2023-01-30 21:45] LABS: Urine Bacteria NONE SEEN /hpf (None Seen); Urine Blood 1+ /uL (Negative); Urine Clarity Clear (Clear); Urine Color Colorless (Yellow); Urine Protein, UAD TRACE (Negative); Urine Urobilinogen Normal (Negative); Urine WBC 71 /hpf (0 - 5)
[2023-01-30 21:51] LABS: Urine Specific Gravity > 1.050 (1.001-1.035)
[2023-01-31] MEDS ORDERED: CEPH500C PO (10:45)
[2023-01-31] MEDS ORDERED: MELO-335 PO (10:56)
[2023-01-31] MEDS ORDERED: CYCL-839 PO (10:56)
== END 2023-01-30 21:45 | disposition home or self-care (01) ==
LOC: ER 11:46
DX: R07.89 Other chest pain (principal); N39.0 Urinary tract infection, site not specified
CPT/HCPCS: 36415; 70450; 70496; 71045; 80053; 81001; 84484; 85025; 93005

== ENCOUNTER 2023-01-31 14:32 | Inpatient (IN) | payer MEDICARE, OTHER ==
[~2023-01-31] VITALS: Ht 175.3 cm; Wt 92.5 kg
[~2023-01-31 14:32] MED LIST changes: +CEPH500C PO; +MELO-335 PO
[2023-01-31] MEDS ORDERED: DEXTROSE 10% 250 ML IV ONE (14:47)
[2023-01-31] MEDS ORDERED: DEXTROSE 10% 250 ML Bag IV ONE (15:15)
[2023-01-31] MEDS ORDERED: PROCHLORPERAZINE EDISYLATE 5 MG/ML 2ML VIAL IM ONE (16:00)
[2023-01-31] MEDS ORDERED: cefTRIAXone 1GM/50ML D5W 50 ML IV ONE (16:00)
[2023-01-31] MEDS ORDERED: SODIUM CHLORIDE 0.9% 1,000 ML IV ONE (16:00)
[2023-01-31 16:35] LABS: Basophils # (auto) 0 10 ^3/uL (0-0.2); Basophils % (auto) 0.1 % (0.0-2.0); Eosinophils # (auto) 0 10 ^3/uL (0-0.8); Hematocrit 42.6 % (36.0-46.0); Lymphocytes # (auto) 0.6 10 ^3/uL (0.4-5.4); Lymphocytes % (auto) 3.8 % (10.0-50.0); Mean Corpuscular Hemoglobin 28.6 pg (28.0-32.0); Mean Corpuscular Hgb Conc. 32.8 g/dL (32.0-36.0); Mean Corpuscular Volume 87.3 fL (80.0-100.0); Monocytes # (auto) 1.1 10 ^3/uL (0-1.3); Monocytes % (auto) 7.5 % (0.0-12.0); Neutrophils # (auto) 13.1 10 ^3/uL (1.6-8.6); Neutrophils % (auto) 88.6 % (37.0-80.0); Red Blood Cells 4.88 10^6/uL (4.0-5.20); Red Cell Distribution Width 13.1 % (11.8-14.3); White Blood Cell 14.8 10^3/uL (4.4-10.8)
[2023-01-31 16:51] LABS: Alanine Aminotransferase 14 U/L (7-40); Albumin 4.5 g/dL (3.2-4.8); Alkaline Phosphatase 137 U/L (46-116); Anion Gap 7 (5-15); Aspartate Aminotransferase 23 U/L (13-40); BUN/Creatinine Ratio 9.8 (10.0-20.0); Blood Urea Nitrogen 10 mg/dL (9-23); Calcium 9.3 mg/dL (8.7-10.4); Carbon Dioxide 29 mmol/L (20-30); Chloride 96 mmol/L (98-107); Glucose 91 mg/dL (74-106); Sodium 132 mmol/L (136-145)
[2023-01-31 16:52] LABS: Bilirubin, Total 0.7 mg/dL (0.2-1.0); INR 1.04 (0.9-1.15); Partial Thromboplastin Time 26.9 SEC (24.5-34.5); Prothrombin Time 10.9 sec (9.3-11.8)
[2023-01-31 16:57] VITALS: RESP 18; O2SAT 94
[2023-01-31 20:00] VITALS: PULSE 90; RESP 24; O2SAT 94
[2023-01-31] MEDS ORDERED: ACETAMINOPHEN 500 MG TAB PO ONE (20:30)
[2023-01-31] MEDS ORDERED: ACETAMINOPHEN 325 MG TAB PO PRN (23:15)
[2023-01-31] MEDS ORDERED: ONDANSETRON HCL 4 MG/2 ML VIAL IV PRN (23:15)
[2023-02-01 03:25] LABS: Basophils # (auto) 0 10 ^3/uL (0-0.2); Basophils % (auto) 0.2 % (0.0-2.0); Eosinophils # (auto) 0 10 ^3/uL (0-0.8); Eosinophils % (auto) 0.2 % (0.0-7.0); Hematocrit 41.6 % (36.0-46.0); Hemoglobin 13.8 g/dL (12.2-16.2); Lymphocytes # (auto) 2.4 10 ^3/uL (0.4-5.4); Mean Corpuscular Hemoglobin 28.6 pg (28.0-32.0); Mean Corpuscular Hgb Conc. 33.1 g/dL (32.0-36.0); Mean Corpuscular Volume 86.4 fL (80.0-100.0); Monocytes # (auto) 1.8 10 ^3/uL (0-1.3); Monocytes % (auto) 9.6 % (0.0-12.0); Red Blood Cells 4.82 10^6/uL (4.0-5.20); Red Cell Distribution Width 13.4 % (11.8-14.3); White Blood Cell 18.2 10^3/uL (4.4-10.8)
[2023-02-01 03:47] LABS: Alanine Aminotransferase 12 U/L (7-40); Albumin 4.3 g/dL (3.2-4.8); Alkaline Phosphatase 127 U/L (46-116); Anion Gap 6 (5-15); Aspartate Aminotransferase 18 U/L (13-40); BUN/Creatinine Ratio 10.7 (10.0-20.0); Bilirubin, Total 0.9 mg/dL (0.2-1.0); Blood Urea Nitrogen 9 mg/dL (9-23); Carbon Dioxide 30 mmol/L (20-30); Chloride 95 mmol/L (98-107); Glucose 99 mg/dL (74-106); Potassium 3.8 mmol/L (3.5-5.1); Sodium 131 mmol/L (136-145); Total Protein 7.1 g/dL (5.7-8.2)
[2023-02-01 04:45] VITALS: PULSE 84; RESP 20; O2SAT 96
[2023-02-01 05:06] LABS: Amphetamine Screen, Urine Neg (NEGATIVE)
[2023-02-01 05:07] LABS: Barbiturate Scree,Urine Neg (NEGATIVE); Benzodiazephine Screen, Urine Neg (NEGATIVE); Cannabinoid Screen, Urine Pos (NEGATIVE); Cocaine Screen, Urine Neg (NEGATIVE); Opiate Scree,Urine Neg (NEGATIVE); Phencyclidine Screen, Urine Neg (NEGATIVE)
[2023-02-01 07:56] VITALS: PULSE 76; RESP 20; O2SAT 98
[2023-02-01] MEDS: LISINOPRIL 20 MG TAB PO SCH (09:18)
[2023-02-01] MEDS: cefTRIAXone 1GM/50ML D5W 50 ML IV SCH (09:20)
[2023-02-01] MEDS: ENOXAPARIN SOD 40 MG/0.4 ML SYRINGE SC SCH (09:20)
[2023-02-01 13:00] VITALS: BP 115/62; PULSE 72; RESP 17; TEMP 97.4; O2SAT 99
[2023-02-01 17:00] VITALS: BP 104/56; PULSE 69; RESP 16; TEMP 98.3; O2SAT 95
[2023-02-01 19:38] LABS: Rapid Influenza A Negative (Negative); Rapid Influenza B Negative (Negative)
[2023-02-01] MEDS: ATORVASTATIN 20 MG TAB PO SCH (21:11)
[2023-02-01] MEDS: TEMAZEPAM 15 MG CAP PO PRN (21:22)
[2023-02-01 21:28] LABS: COVID19 ANTIGEN SOFIA FIA NEGATIVE (NEGATIVE)
[2023-02-01 21:53] LABS: Urine Bacteria NONE SEEN /hpf (None Seen); Urine Blood Negative /uL (Negative); Urine Clarity Clear (Clear); Urine Color Colorless (Yellow); Urine Protein, UAD Negative (Negative); Urine Specific Gravity 1.006 (1.001-1.035); Urine Urobilinogen Normal (Negative); Urine WBC 5 /hpf (0 - 5); Urine pH 6.5 (5.0-8.0)
[2023-02-01 22:00] VITALS: BP 130/69; PULSE 69; RESP 17; TEMP 98.8; O2SAT 94
[2023-02-01] MEDS ORDERED: ATORVASTATIN 20 MG TAB PO SCH (22:00)
[2023-02-01] MEDS ORDERED: GABA-339 PO (23:05)
[2023-02-01] MEDS ORDERED: AMIT25TA20 PO (23:07)
[2023-02-01] MEDS: HYDROcodone-ACET 5/325MG TAB PO PRN (23:12)
[2023-02-02 05:00] VITALS: BP 98/61; PULSE 56; RESP 17; TEMP 97.4; O2SAT 94
[2023-02-02 08:00] VITALS: BP 97/66; PULSE 53; RESP 18; TEMP 98.1; O2SAT 94
[2023-02-02] MEDS: HYDROcodone-ACET 5/325MG TAB PO PRN ×2 (08:56→20:22)
[2023-02-02] MEDS: cefTRIAXone 1GM/50ML D5W 50 ML IV SCH (08:57)
[2023-02-02] MEDS: ENOXAPARIN SOD 40 MG/0.4 ML SYRINGE SC SCH (08:58)
[2023-02-02 09:00] VITALS: BP 97/66; PULSE 53; RESP 18; TEMP 98.1; O2SAT 94
[2023-02-02 12:59] VITALS: BP 113/66; PULSE 57; RESP 17; TEMP 97.9; O2SAT 95
[2023-02-02] MEDS: LISINOPRIL 20 MG TAB PO SCH (13:05)
[2023-02-02] MEDS ORDERED: DOCUSATE SOD 100 MG CAP PO PRN (13:15)
[2023-02-02] MEDS: GABAPENTIN 400 MG CAP PO SCH ×2 (15:38→21:11)
[2023-02-02 17:00] VITALS: BP 119/69; PULSE 64; RESP 17; TEMP 97.9; O2SAT 97
[2023-02-02] MEDS: TEMAZEPAM 15 MG CAP PO PRN (21:10)
[2023-02-02] MEDS: AMITRIPTYLINE HCL 25 MG TAB PO SCH (21:11)
[2023-02-02] MEDS: ATORVASTATIN 20 MG TAB PO SCH (21:11)
[2023-02-02] MEDS: CYCLOBENZAPRINE HCL 10 MG TAB PO SCH (21:12)
[2023-02-02 22:00] VITALS: BP 113/69; PULSE 70; RESP 18; TEMP 98.3; O2SAT 97
[2023-02-03 05:00] VITALS: BP 118/62; PULSE 59; RESP 18; TEMP 97.8; O2SAT 93
[2023-02-03] MEDS: GABAPENTIN 400 MG CAP PO SCH (05:08)
[2023-02-03 08:00] VITALS: BP 133/82; PULSE 77; RESP 17; TEMP 98.1; O2SAT 93
[2023-02-03 08:40] VITALS: BP 133/82; PULSE 77; RESP 17; TEMP 98.1; O2SAT 93
[2023-02-03] MEDS: cefTRIAXone 1GM/50ML D5W 50 ML IV SCH (09:35)
[2023-02-03] MEDS: ENOXAPARIN SOD 40 MG/0.4 ML SYRINGE SC SCH (09:35)
[2023-02-03] MEDS: AMITRIPTYLINE HCL 25 MG TAB PO SCH (09:36)
[2023-02-03] MEDS: LISINOPRIL 20 MG TAB PO SCH (09:36)
[2023-02-03] MEDS: CYCLOBENZAPRINE HCL 10 MG TAB PO SCH (09:36)
[2023-02-03] MEDS ORDERED: LEVO500T91 PO (10:24)
[2023-02-03 11:58] VITALS: BP 133/82; PULSE 77; RESP 17; TEMP 98.1; O2SAT 93
[2023-02-03 13:00] VITALS: BP 128/72; PULSE 76; RESP 17; TEMP 98.3; O2SAT 91
== END 2023-02-03 13:00 | disposition home health service (06) | DRG 871 ==
LOC: ER 14:32 → OVERFLOW 23:17 → CENTRAL 02-01 10:52
PROVIDERS: ADMIT Nurse Practitioner; ATTEND Family Medicine
DX: A41.9 Sepsis, unspecified organism (principal); G93.41 Metabolic encephalopathy; R65.21 Severe sepsis with septic shock; N39.0 Urinary tract infection, site not specified; G45.9 Transient cerebral ischemic attack, unspecified; E86.0 Dehydration; I10 Essential (primary) hypertension; E78.5 Hyperlipidemia, unspecified; E16.2 Hypoglycemia, unspecified; G62.9 Polyneuropathy, unspecified; F32.A Depression, unspecified; Z20.822 Contact with and (suspected) exposure to COVID-19
CPT/HCPCS: 36415; 70450; 70496; 71045; 80053; 80307; 81001; 82140; 82607; 83605; 84443; 84484; 85025; 85610; 85730; 87040; 87086; 87426; 87804; 93005; 96365; 96366; 96372; G0378; J0696

== ENCOUNTER → 2023-03-11 | Outpatient (CLI) | payer MEDICARE, OTHER ==
[~2023-03-11] MED LIST changes: +AMIT25TA20 PO; +GABA-339 PO; -GABA300C PO; +LEVO500T91 PO
[2023-03-11 12:07] LABS: Urine Bacteria NONE SEEN /hpf (None Seen); Urine Blood Negative /uL (Negative); Urine Clarity Clear (Clear); Urine Color Yellow (Yellow); Urine Mucus FEW (None Seen); Urine Protein, UAD Negative (Negative); Urine Specific Gravity 1.017 (1.001-1.035); Urine Urobilinogen Normal (Negative); Urine WBC 12 /hpf (0 - 5)
== END | disposition home or self-care (01) ==
LOC: LAB 11:30
PROVIDERS: ATTEND Student in an Organized Health Care Education/Training Program
DX: N39.3 Stress incontinence (female) (male) (principal); N39.0 Urinary tract infection, site not specified; T81.12XA Postprocedural septic shock, initial encounter; X58.XXXA Exposure to other specified factors, initial encounter; Y93.89 Activity, other specified; Y92.89 Other specified places as the place of occurrence of the external cause; Y99.8 Other external cause status
CPT/HCPCS: 81001; 87086

== ENCOUNTER → 2023-04-15 | Outpatient (CLI) | payer MEDICARE, OTHER ==
[2023-04-15 15:13] LABS: Urine Bacteria FEW /hpf (None Seen); Urine Blood Negative /uL (Negative); Urine Clarity Clear (Clear); Urine Color Colorless (Yellow); Urine Protein, UAD Negative (Negative); Urine Specific Gravity 1.013 (1.001-1.035); Urine Urobilinogen Normal (Negative); Urine WBC 1 /hpf (0 - 5)
== END | disposition home or self-care (01) ==
LOC: LAB 05:54
PROVIDERS: ATTEND Urology
DX: N39.0 Urinary tract infection, site not specified (principal)
CPT/HCPCS: 81001; 87086

== ENCOUNTER → 2023-04-16 | Outpatient (CLI) | payer MEDICARE, OTHER ==
[2023-04-16 11:21] LABS: Basophils # (auto) 0.1 10 ^3/uL (0-0.2); Basophils % (auto) 0.6 % (0.0-2.0); Eosinophils # (auto) 0 10 ^3/uL (0-0.8); Hematocrit 45.1 % (36.0-46.0); Hemoglobin 14.9 g/dL (12.2-16.2); Lymphocytes # (auto) 1.7 10 ^3/uL (0.4-5.4); Lymphocytes % (auto) 13.4 % (10.0-50.0); Mean Corpuscular Hemoglobin 28.2 pg (28.0-32.0); Mean Corpuscular Volume 85.7 fL (80.0-100.0); Monocytes # (auto) 0.7 10 ^3/uL (0-1.3); Monocytes % (auto) 5.9 % (0.0-12.0); Neutrophils % (auto) 80.1 % (37.0-80.0); Nucleated Red Blood Cells % 0.1 %; Red Blood Cells 5.26 10^6/uL (4.0-5.20); Red Cell Distribution Width 13.8 % (11.8-14.3); White Blood Cell 12.5 10^3/uL (4.4-10.8)
[2023-04-16 12:13] LABS: Alanine Aminotransferase 22 U/L (7-40); Alkaline Phosphatase 150 U/L (46-116); Anion Gap 6 (5-15); Aspartate Aminotransferase 11 U/L (13-40); BUN/Creatinine Ratio 21.4 (10.0-20.0); Blood Urea Nitrogen 15 mg/dL (9-23); Calcium 9.9 mg/dL (8.5-10.1); Carbon Dioxide 30 mmol/L (20-30); Chloride 103 mmol/L (98-107); Glucose 119 mg/dL (74-106); LDL Cholesterol 69 mg/dL (< 100); Potassium 3.9 mmol/L (3.5-5.1); Sodium 139 mmol/L (136-145); Triglycerides 76 mg/dL (< 150)
[2023-04-16 12:14] LABS: Albumin 4.5 g/dL (3.2-4.8); Bilirubin, Total 0.4 mg/dL (0.2-1.0); Cholesterol 176 mg/dL (< 200); HDL Cholesterol 88 mg/dL (40-59); Total Protein 7.2 g/dL (5.7-8.2)
== END | disposition home or self-care (01) ==
LOC: LAB 11:10
PROVIDERS: ATTEND Student in an Organized Health Care Education/Training Program
DX: Z12.11 Encounter for screening for malignant neoplasm of colon (principal); J44.9 Chronic obstructive pulmonary disease, unspecified; I70.0 Atherosclerosis of aorta; E78.5 Hyperlipidemia, unspecified
CPT/HCPCS: 36415; 80053; 80061; 82274; 85025

== ENCOUNTER 2023-04-21 12:25 | Emergency (ER) | payer MEDICARE, OTHER ==
[~2023-04-21] VITALS: Ht 175.3 cm; Wt 91.4 kg
[2023-04-21 13:06] VITALS: BP 145/94; PULSE 123; RESP 16; O2SAT 98
[2023-04-21 13:28] LABS: Urine Bacteria NONE SEEN /hpf (None Seen); Urine Blood 3+ /uL (Negative); Urine Clarity CLOUDY (Clear); Urine Color Red (Yellow); Urine Mucus FEW (None Seen); Urine Protein, UAD 2+ (Negative); Urine Specific Gravity 1.022 (1.001-1.035); Urine Urobilinogen Normal (Negative); Urine WBC 600 /hpf (0 - 5); Urine WBC Clumps PRESENT /hpf (None Seen); Urine pH 5.5 (5.0-8.0)
[2023-04-21] MEDS ORDERED: CIPR-173 PO (13:33)
== END 2023-04-21 14:49 | disposition home or self-care (01) ==
LOC: ER 12:25
DX: N39.0 Urinary tract infection, site not specified (principal); J44.9 Chronic obstructive pulmonary disease, unspecified; E78.5 Hyperlipidemia, unspecified; I10 Essential (primary) hypertension; F12.10 Cannabis abuse, uncomplicated; Z98.51 Tubal ligation status
CPT/HCPCS: 81001

== ENCOUNTER → 2023-07-20 | Outpatient (CLI) | payer MEDICARE, OTHER ==
[~2023-07-20] MED LIST changes: -AMIT50TA10 PO; +AMIT50TA12 PO; +CIPR-173 PO; -MELO-335 PO; +MELO15TA29 PO
== END | disposition home or self-care (01) ==
LOC: XYW 15:41
PROVIDERS: ATTEND Student in an Organized Health Care Education/Training Program
DX: R55 Syncope and collapse (principal); I51.89 Other ill-defined heart diseases
CPT/HCPCS: 93306

== ENCOUNTER → 2023-10-07 | Outpatient (CLI) | payer MEDICARE, OTHER | END | disposition home or self-care (01) | LOC: XYW 10:00 | PROVIDERS: ATTEND Student in an Organized Health Care Education/Training Program | DX: R55 Syncope and collapse (principal) | CPT/HCPCS: 93886 ==

== ENCOUNTER → 2023-10-28 | Outpatient (CLI) | payer MEDICARE, OTHER ==
[~2023-10-28] VITALS: Ht 175.3 cm; Wt 83.9 kg
[2023-10-28] MEDS: ADENOSINE 70 MG in GIVE UN-DILUTED 0 ML IV ONE (11:42)
== END | disposition home or self-care (01) ==
LOC: XYW 07:49
PROVIDERS: ATTEND Student in an Organized Health Care Education/Training Program
DX: Z01.810 Encounter for preprocedural cardiovascular examination (principal); I10 Essential (primary) hypertension; R32 Unspecified urinary incontinence
CPT/HCPCS: 78452; 93017; A9500; J0153

== ENCOUNTER 2023-12-17 09:36 | Day surgery (SDC) | payer MEDICARE, OTHER ==
[2023-12-15 14:49] LABS: Urine Bacteria None Seen /hpf (None Seen)
[2023-12-15 14:53] LABS: Basophils # (auto) 0 10 ^3/uL (0-0.2); Basophils % (auto) 0.4 % (0.0-2.0); Eosinophils # (auto) 0.1 10 ^3/uL (0-0.8); Eosinophils % (auto) 0.9 % (0.0-7.0); Hematocrit 50.1 % (36.0-46.0); Hemoglobin 16.9 g/dL (12.2-16.2); Lymphocytes # (auto) 2.3 10 ^3/uL (0.4-5.4); Lymphocytes % (auto) 32.1 % (10.0-50.0); Mean Corpuscular Hemoglobin 29.8 pg (28.0-32.0); Mean Corpuscular Hgb Conc. 33.8 g/dL (32.0-36.0); Mean Corpuscular Volume 88.3 fL (80.0-100.0); Monocytes # (auto) 0.5 10 ^3/uL (0-1.3); Monocytes % (auto) 6.7 % (0.0-12.0); Neutrophils # (auto) 4.2 10 ^3/uL (1.6-8.6); Neutrophils % (auto) 59.9 % (37.0-80.0); Nucleated Red Blood Cells % 0.4 %; Platelet Count (auto) 277 10^3/uL (140-450); Red Blood Cells 5.67 10^6/uL (4.0-5.20); Red Cell Distribution Width 13.4 % (11.8-14.3)
[2023-12-15 15:01] LABS: Urine Blood Negative /uL (Negative); Urine Clarity Clear (Clear); Urine Color Light-Yellow (Yellow); Urine Protein, UAD Negative (Negative); Urine Specific Gravity 1.018 (1.001-1.035); Urine Urobilinogen Normal (Negative); Urine WBC 5 /hpf (0 - 5); Urine pH 6.5 (5.0-9.0)
[2023-12-15 15:12] LABS: Alanine Aminotransferase 11 U/L (7-40); Albumin 4.7 g/dL (3.2-4.8); Alkaline Phosphatase 161 U/L (46-116); Anion Gap 8 (5-15); Aspartate Aminotransferase 14 U/L (13-40); BUN/Creatinine Ratio 12.2 (10.0-20.0); Bilirubin, Total 0.7 mg/dL (0.2-1.0); Blood Urea Nitrogen 10 mg/dL (9-23); Calcium 10.4 mg/dL (8.7-10.4); Carbon Dioxide 27 mmol/L (20-31); Chloride 103 mmol/L (98-107); Glucose 92 mg/dL (74-106); Potassium 4.2 mmol/L (3.5-5.1); Sodium 138 mmol/L (136-145)
[2023-12-15 15:13] LABS: Total Protein 7.5 g/dL (5.7-8.2)
[2023-12-15 15:14] LABS: INR 0.99 (0.9-1.15); Partial Thromboplastin Time 27.4 SEC (24.5-34.5); Prothrombin Time 10.5 sec (9.3-11.8)
[~2023-12-17] VITALS: Ht 175.3 cm; Wt 81.6 kg
[~2023-12-17 09:36] MED LIST changes: -AMIT25TA20 PO; -AMIT50TA12 PO; +ASPI-543 PO; -CEPH500C PO; -CIPR-173 PO; -DOXY-286 PO; -GABA-339 PO; -IPRA0.00 IN; -LEVO500T91 PO; -MELO15TA29 PO; -NOR7.5T PO; -PERCOT PO; -PRAV20TA3 PO; +ROSU20TA14 PO
[2023-12-17] MEDS ORDERED: CELECOXIB 100 MG CAP PO ONE (12:15)
[2023-12-17] MEDS ORDERED: ACETAMINOPHEN IV 1000 MG/100ML (10MG/ML) IV ONE (12:15)
[2023-12-17] MEDS ORDERED: GABAPENTIN 300 MG CAP PO ONE (12:15)
[2023-12-17] MEDS ORDERED: DexAMETHasone SOD PHOS 10MG/1ML VIAL INJ ONE (12:18)
[2023-12-17] MEDS ORDERED: PROPOFOL 10 MG/ML 20 ML IV ONE (12:18)
[2023-12-17] MEDS ORDERED: ONDANSETRON HCL 4 MG/2 ML VIAL ONE (12:18)
[2023-12-17] MEDS ORDERED: LIDOCAINE 2% (LOCAL ANESTH.) PF 5ml SDV ONE (12:18)
[2023-12-17] MEDS ORDERED: KETAMINE 50mg/ML 1ml syringe ONE (12:18)
[2023-12-17] MEDS ORDERED: GLYCOPYRROLATE 0.2 MG/ML 1ML VIAL ONE (12:18)
[2023-12-17] MEDS ORDERED: KETOROLAC TROMETH 30 MG/ML 1ML VIAL ONE (12:18)
[2023-12-17] MEDS ORDERED: fentaNYL CITRATE 100 MCG/2 ML VL ONE (12:18)
[2023-12-17] MEDS ORDERED: CELECOXIB 100 MG CAP ONE (12:20)
[2023-12-17] MEDS ORDERED: GABAPENTIN 300 MG CAP ONE (12:20)
[2023-12-17] MEDS ORDERED: ACETAMINOPHEN IV 100 ML IV ONE (12:21)
[2023-12-17] MEDS ORDERED: LIDOCAINE W/ EPINEPHRINE 1% 20ML VIAL ONE (12:25)
[2023-12-17] MEDS ORDERED: CONJ ESTROGENS 0.625MG/GM VAG CRM 30GM PV ONE ×2 (12:26→13:59)
[2023-12-17] MEDS ORDERED: ceFAZolin 1GM/50ML 50 ML IV ONE (12:27)
[2023-12-17] MEDS ORDERED: levoFLOXacin 500MG 100 ML IV ONE (12:29)
[2023-12-17] MEDS: LIDOCAINE 1%-Mpf/Epinephrine 1:200,000 30ml VIAL IJ ONE (13:22)
[2023-12-17 14:10] VITALS: TEMP 97.1; O2SAT 100
[2023-12-17] MEDS ORDERED: oxyCODONE HCL 5MG TAB PO PRN (14:30)
[2023-12-17] MEDS ORDERED: ONDANSETRON HCL 4 MG/2 ML VIAL IV PRN (14:30)
[2023-12-17] MEDS ORDERED: fentaNYL CITRATE 100 MCG/2 ML VL IV PRN (14:30)
[2023-12-17] MEDS ORDERED: ePHEDrine SULFATE 50 MG/ML AMP IV PRN (14:30)
[2023-12-17] MEDS ORDERED: FLUMAZENIL 0.1 MG/ML INJ 10ML MDV IV PRN (14:30)
[2023-12-17] MEDS ORDERED: HYDROmorphone HCL 2 MG/ML VL/or syr IV PRN (14:30)
[2023-12-17] MEDS ORDERED: NALOXONE HCL 0.4 MG/ML VIAL IV PRN (14:30)
[2023-12-17] MEDS ORDERED: hydrALAZINE HCL 20 MG/ML VL IV PRN (14:30)
[2023-12-17 15:05] VITALS: BP 130/77; PULSE 66; RESP 14; O2SAT 99
== END 2023-12-17 15:12 | disposition home or self-care (01) ==
LOC: SUR 09:36
PROVIDERS: ATTEND Urology
DX: N39.3 Stress incontinence (female) (male) (principal); N81.10 Cystocele, unspecified; F32.A Depression, unspecified; I10 Essential (primary) hypertension; F41.9 Anxiety disorder, unspecified; E66.3 Overweight; K21.9 Gastro-esophageal reflux disease without esophagitis; G89.29 Other chronic pain; Z79.82 Long term (current) use of aspirin; Z98.890 Other specified postprocedural states; Z87.891 Personal history of nicotine dependence; Z79.899 Other long term (current) drug therapy
CPT/HCPCS: 36415; 57240; 57288; 80053; 81001; 85025; 85610; 85730; 87086; 88305; C1771; J0690; J1100; J1885; J1956; J2003; J2004; J2405; J2704; J3010; J0131

== ENCOUNTER 2024-04-02 07:57 | Emergency (ER) | payer MEDICARE, OTHER ==
[~2024-04-02] VITALS: Ht 175.3 cm; Wt 83.6 kg
[2024-04-02 08:26] VITALS: TEMP 98.2
--- NOTE | 2024-04-02 08:37 | ED.PDOC ---
General HPI Comments A 63 YEAR OLD FEMALE PRESENTS TO THE ED WITH COMPLAINT OF RIGHT-SIDED FLANK PAIN THAT RADIATES TO RIGHT PELVIC REGION. PATIENT STATES SHE WAS RECENTLY DIAGNOSED WITH A UTI AND KIDNEY STONE BY HER PCP AND HAS BEEN EXPERIENCING RIGHT FLANK PAIN THAT RADIATES TO HER RIGHT PELVIC REGION FOR THE PAST 3 DAYS. PATIENT REPORTS SHE HAS ALSO HAD NAUSEA AND VOMITING FOR THE PAST 3 DAYS AND HAS BEEN UNABLE TO HOLD ANY FOOD DOWN A RESULT. PATIENT DENIES DYSURIA, HEMATURIA, FEVER, CHILLS, SHORTNESS OF BREATH, CHEST PAIN, ABDOMINAL PAIN, HEADACHE, OR OTHER COMPLAINTS. NO OTHER SYMPTOMS OR MODIFYING FACTORS AT THIS TIME. PATIENT IS ALERT, ORIENTED X 4, AND HAS STEADY GAIT. Chief Complaint: Flank Pain Time Seen by MD: 08:10 Primary Care Provider: MARCELA Cuadra notes: Nurses Notes, Medications, Allergies Allergies: Coded Allergies: NO KNOWN ALLERGIES (Unverified , 10/28/23) Home Meds Active Scripts Lactulose (Lactulose) 10 Gm/15 Ml Madyson, 30 ML PO BID, #280 ML Prov:SALOME BOYLE 04/02/24 Cyclobenzaprine Hcl (Cyclobenzaprine Hcl) 10 Mg Tab, 10 MG PO BID PRN, #20 TAB Prov:KAHLIL APONTE MD 01/31/23 Reported Medications Rosuvastatin Calcium (Crestor) 20 Mg Tab, 1 TAB PO DAILY, #30 TAB 5 Refills 12/15/23 Aspirin (Aspir-Low) 81 Mg Tab, 81 MG PO DAILY for 30 Days, MG 12/15/23 Lisinopril (Lisinopril) 20 Mg Tab, 20 MG PO DAILY, TAB 03/18/21 Omeprazole ([facility] Omeprazole) 20 Mg Tab, 20 MG PO DAILY for 90 Days 09/06/13 Information Source: Patient Mode of Arrival: Ambulatory Severity: Moderate Inability to void: None Timing: Days Duration: Since onset, Days Prehospital treatment: None Onset: Spontaneous Symptoms: Other (RIGHT FLANK PAIN, RIGHT PELVIC PAIN) History of: UTI, Kidney stone Location: Suprapubic, (R) Flank Modifying factors: None associated signs and symptoms: Abdominal Pain, Nausea, Vomiting Past Medical History PAST MEDICAL HISTORY: Anxiety, COPD, Depression, High Lipids, HTN, UTI'S Past Medical History (Other): CHRONIC NECK AND LOWER BACK PAIN Surgical History: BTL, Tonsillectomy LIFE SCIENCE TEACHER History: No Pertinent LIFE SCIENCE TEACHER History Family History Family History: Reviewed,noncontributory to illness Social History Smoker: Non-Smoker Alcohol: Denies ETOH Use Drugs: Marijuana Lives In: Home Constitutional: denies: chills, diaphoresis, fatigue, fever, malaise, sweats, weakness, others EENTM: denies: blurred vision, double vision, ear bleeding, ear discharge, ear drainage, ear pain, ear ringing, eye pain, eye redness, hearing loss, mouth pain, mouth swelling, nasal discharge, nose bleeding, nose congestion, nose pain, photophobia, tearing, throat pain, throat swelling, voice changes, others Respiratory: denies: cough, hemoptysis, orthopnea, SOB at rest, shortness of breath, SOB with excertion, stridor, wheezing, others Cardiovascular: denies: chest pain, dizzy spells, diaphoresis, Dyspnea on exertion, edema, irregular heart beat, left arm pain, lightheadedness, palpitations, PND, syncope, others Gastrointestinal: reports: nausea, vomiting; denies: abdomen distended, abdominal pain, blood streaked bowels, constipated, diarrhea, dysphagia, difficulty swallowing, hematemesis, melena, poor appetite, poor fluid intake, rectal bleeding, rectal pain, others Genitourinary: reports: flank pain, pain (PELVIC PAIN); denies: abnormal vagina bleeding, burning, dyspareunia, dysuria, frequency, hematuria, incontinence, pr egnant, vagina discharge, urgency, others Neurological: denies: dizziness, fainting, headache, left sided numbness, left sided weakness, numbness, paresthesia, pre-existing deficit, right sided numbness, right sided weakness, seizure, speech problems, tingling, tremors, weakness, others Musculoskeletal: denies: back pain, gout, joint pain, joint swelling, muscle pain, muscle stiffness, neck pain, others Integumetry: denies: bruises, change in color, change in hair/nails, dryness, laceration, lesions, lumps, rash, wounds, others Allergic/Immunocompromised: denies: Difficulty Healing, Frequent Infections, Hives, Itching, others Hematologic/Lymphatic: denies: anemia, blood clots, easy bleeding, easy bruising, swollen glands, others Endocrine: denies: excessive hunger, excessive sweating, excessive thirst, excessive urination, flushing, intolerance to cold, intolerance to heat, unexp lained weight gain, unexplained weight loss, others Psychiatric: denies: anxiety, bipolar disorder, depression, hopeless, panic disorder, schizophrenia, sleepless, suicidal, others All Other Systems: Reviewed and Negative Physical Exam General Appearance: No Apparent Distress, Normal HEENT: Normal ENT Inspection, PERRL/EOMI, Pharynx Normal, TMs Normal Neck: Full Range of Motion, Non-Tender, Normal, Normal Inspection Respiratory: Chest Non-Tender, Lungs Clear, No Accessory Muscle Use, No Resp iratory Distress, Normal Breath Sounds Cardiovascular: No Edema, No JVD, No Murmur, No Gallop, Normal Peripheral Pulses, Regular Rate/Rhythm Breast Exam: Deferred Gastrointestinal: No Organomegaly, No Pulsatile Mass, Normal Bowel Sounds, RLQ, Soft, Tenderness (RIGHT FLANK AND RIGHT LOWER ABD, NO GUARDING AND REBOUND TENDERNESS. -CVA TENDERNESS. ) Genitalia: Deferred Pelvic: Normal External Exam, Tender Uterus Rectal: Deferred Extremities: No calf tenderness, Normal capillary refill, Normal inspection, Normal range of motion, Non-tender, No pedal edema Musculoskeletal : Location: Bilateral Extremity Location: Back Apperance: Tenderness: Moderate (AND MUSCLE SPASM ON RIGHT LOW BACK, NO BONY TENDERNESS, SWELLING AND DEFORMITY. 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 Was a procedure done?: No Differential Diagnosis Kidney stone (Female): Musculoskeletal pain, Pyelonephritis, Renal failure, Strain, Urolithiasis Kidney stone (Male): N/A Penile/Scrotal: N/A Urinary Problem (Male): N/A Urinary Problem (Female): Pyelonephritis, Urolithiasis, UTI, Vaginitis X-Ray, Labs, Meds, VS Vital Signs Date Time Temp Pulse Resp B/P (MAP) Pulse Ox O2 Delivery O2 Flow Rate FiO2 04/02/24 10:51 76 18 134/71 04/02/24 10:37 75 16 146/84 (104) 100 04/02/24 08:26 98.2 96 16 151/102 (118) 97 98.2 04/02/24 08:26 96 16 97 Room Air 04/02/24 08:13 98.2 96 16 151/102 (118) 97 Lab Test 04/02/24 09:51 04/02/24 08:47 04/02/24 08:31 Range/Units Sodium Level Pending Potassium Level Pending Chloride Level Pending Carbon Dioxide Level Pending Anion Gap Pending Blood Urea Nitrogen Pending Creatinine Pending Glomerular Filtration Rate Calc Pending BUN/Creatinine Ratio Pending Serum Glucose Pending Calcium Level Pending Total Bilirubin Pending Aspartate Amino Transferase (AST) Pending Alanine Aminotransferase (ALT) Pending Alkaline Phosphatase Pending Total Protein Pending Albumin Pending White Blood Count 9.2 4.4-10.8 10^3/uL Red Blood Count 5.58 H 4.0-5.20 10^6/uL Hemoglobin 16.6 H 12.2-16.2 g/dL Hematocrit 48.4 H 36.0-46.0 % Mean Corpuscular Volume 86.8 80.0-100.0 fL Mean Corpuscular Hemoglobin 29.7 28.0-32.0 pg Mean Corpuscular Hemoglobin Concent 34.2 32.0-36.0 g/dL Red Cell Distribution Width 12.9 11.8-14.3 % Platelet Count 341 140-450 10^3/uL Mean Platelet Volume 8.1 6.9-10.8 fL Neutrophils (%) (Auto) 75.8 37.0-80.0 % Lymphocytes (%) (Auto) 17.5 10.0-50.0 % Monocytes (%) (Auto) 6.2 0.0-12.0 % Eosinophils (%) (Auto) 0.2 0.0-7.0 % Basophils (%) (Auto) 0.3 0.0-2.0 % Neutrophils # (Auto) 7.0 1.6-8.6 10 ^3/uL Lymphocytes # (Auto) 1.6 0.4-5.4 10 ^3/uL Monocytes # (Auto) 0.6 0-1.3 10 ^3/uL Eosinophils # (Auto) 0 0-0.8 10 ^3/uL Basophils # (Auto) 0 0-0.2 10 ^3/uL Nucleated Red Blood Cells 0.2 % Urine Color Light-yellow Yellow Urine Clarity Clear Clear Urine pH 5.5 5.0-9.0 Urine Specific [place] 1.017 1.001-1.035 Urine Protein Negative Negative Urine Ketones 1+ H Negative Urine Blood 1+ H Negative /uL Urine Nitrite Negative Negative Urine Bilirubin Negative Negative Urine Urobilinogen Normal Negative mg/dL Urine Leukocyte Esterase Negative Negative /uL Urine RBC 1 0 - 4 /hpf Urine Microscopic WBC 4 0-5 /HPF Urine Squamous Epithelial Cells Few <5 /hpf Urine Bacteria Few H None Seen /hpf Urine Mucus Few None Seen Urine Glucose Normal Normal mg/dL Current Medications Medications (Trade) Dose Ordered Sig/Lien Route Start Time Stop Time Status Last Admin Sodium Chloride 1,000 ml @ 1,000 mls/hr Q1H ONCE IV 04/02/24 08:45 04/02/24 09:44 DC 04/02/24 08:42 Morphine Sulfate 4 mg ONCE ONCE IV 04/02/24 10:45 04/02/24 10:46 DC 04/02/24 10:51 CLINICAL INFORMATION: 63 years old, Female; RIGHT FLANK PAIN. TECHNIQUE: Axial CT images of the abdomen and pelvis were obtained without IV contrast. Coronal and sagittal reformatted images were obtained, reviewed, and stored. Evaluation of the parenchymal organs is limited without IV contrast. Evaluation of the bowel and mesentery is limited without oral contrast. All CT scans at this medical facility are performed using dose modulation techniques as appropriate to a performed exam including the following: Automated exposure control was utilized; adjustment of the MA and/or KV according to patient size; and use of iterative reconstruction technique. CTDIvol = 14.38 mGy DLP = 687.13 mGy-cm COMPARISON: None FINDINGS: Motion artifact limits evaluation. Prominent beam hardening artifact from the surgical hardware of the lumbar spine and device in the right ventral abdominal wall also limits evaluation. Lung bases: Lung bases are clear. Liver: Grossly unremarkable in its noncontrast enhanced appearance. No abnormal density or focal lesion identified. Biliary: No calcified gallstones or biliary ductal dilatation. Spleen: Unremarkable. Pancreas: Grossly unremarkable in its noncontrast enhanced appearance. Adrenal glands: Unremarkable. No mass. Kidneys: There is no hydronephrosis. Portions of the courses of the ureters are not visualized due to extensive beam hardening artifact from the patient's surgical hardware in the lumbar spine and from the device in the right ventral abdominal wall. Aorta/Vascular: No aneurysm or significant calcification. Retroperitoneum: No mass or lymphadenopathy. Bowel/mesentery: No small bowel obstruction. No free air or free fluid. Appendix is visualized and appears unremarkable. There is moderate stool in the colon. Pelvic organs: Grossly unremarkable. Bladder: Unremarkable. No mass. Abdominal wall: There is a device in the right ventral abdominal / pelvic body wall with associated catheter extending around the right side of the abdomen to the posterior pelvic body wall coursing into the spinal canal near the L4-L5 level extending cephalad to the L1 level. Bones: No acute fracture or suspicious intraosseous lesion. Postsurgical changes in the lumbar spine paired spinal rods extending from the T8-S1 levels on the right and L1-S1 levels on the left, with associated bilateral transpedicular screws at L3 to S1. The left transpedicular screw at L4 appears to course lateral to the L4 vertebral body, does not appear to be within the vertebral body ( series 2 image 53). The right transpedicular screw at L3 also appears to be laterally positioned with respect of the L3 vertebral body ( series 2, image 44), although artifact limits evaluation. IMPRESSION: 1. Limited examination for the reasons described above, including extensive beam hardening artifact from postsurgical changes in the lumbar spine and device in the ventral abdominal wall. 2. No hydronephrosis and no renal or ureteral calculi visualized. 3. No small bowel obstruction. 4. Moderate stool in the colon. 5. Postsurgical changes in the lumbar spine as described above, somewhat limited evaluation due to motion artifact and beam hardening artifact. The right L3 and left L4 transpedicular screws appear to be malpositioned, coursing laterally to their respective vertebral bodies. Correlate with clinical findings. ATED BY: EAGLE MURILLO DO DICTATED DATE/TIME: 04/02/24941 SIGNED BY: EAGLE MURILLO DO SIGNED DATE/TIME: 04/02/24941 CC: X-Ray, Labs, Meds, VS Comment EXTERNAL MEDICAL RECORDS REVIEWED: [NONE] INDEPENDENT HISTORIANS: [NONE] SOCIAL DETERMINANTS OF HEALTH: [NONE] LABS ORDERED: CBC, BMP, UA REVIEWED AND INTERPRETED RESULTS: NORMAL IMAGING ORDERED: CT ABD/PEL TREATMENTS ORDERED: NS 1L IV, TORADOL 30MG IV, ZOFRAN 4MG IV, MORPHINE 4MG IV PROCEDURES PERFORMED: NONE CRITICAL CARE TIME: NONE I HAVE DISCUSSED THE PATIENT WITH THE ATTENDING PHYSICIAN DR. PHILLIPS AND HE AGREES WITH THE PATIENT'S PLAN OF CARE AND DISPOSITION. BASED ON HISTORY OF PRESENT ILLNESS, AND PHYSICAL EXAM, PATIENT WILL BE DISCHARGED HOME. SHARED DECISION MAKING: PATIENT INSTRUCTED TO FOLLOW UP WITH PRIMARY CARE PROVIDER IN 1-2 DAYS FOR RE-EVALUATION OF SYMPTOMS. PATIENT VERBALIZES UNDERSTANDING TO RETURN TO ED FOR NEW OR WORSENING SYMPTOMS OR IF FOLLOW UP WITH PCP CANNOT BE OBTAINED. PATIENT FEELS COMFORTABLE GOING HOME AT THIS TIME. ALL QUESTIONS ADDRESSED AT TIME OF DISCHARGE. Images Reviewed?: Images reviewed and evaluated by me Time of 1ST Reevaluation: 11:10 Reevaluation 1ST: Improved Patient Education/Counseling: Diagnosis, Treatment, Need For Follow Up Family Education/Counseling: Diagnosis, Treatment, Need For Follow Up Medical Screening: No EMC Exist At This Time Departure 1 Departure Time of Disposition: 11:10 Impression: Primary Impression: Acute constipation Additional Impression: Chronic low back pain Qualified Codes: M54.50 - Low back pain, unspecified; G89.29 - Other chronic pain Disposition: 01 HOME / SELF CARE / HOMELESS Condition: Stable Additional Instructions: FOLLOW-UP WITH PCP IN 1 TO 2 DAYS. TAKE MEDICATIONS PRESCRIBED. RETURN TO ED FOR ANY NEW OR WORSENING SYMPTOMS. e-Prescriptions Lactulose (Lactulose) 10 Gm/15 Ml Madyson 30 ML PO BID, #280 ML Prov: SALOME BOYLE 04/02/24 Discharged With: Self, Relative Critical Care Note Critical Care Time?: No Stability Stability form required: No I personally scribed for SALOME BOYLE ([email or web address]) on 04/02/24 at 08:37. Electronically submitted by Deepak Valentino ([facility]). I personally scribed for SALOME BOYLE ([email or web address]) on 04/02/24 at 10:11. Electronically submitted by Deepak Valentino ([facility]). I personally scribed for SALOME BOYLE ([email or web address]) on 04/02/24 at 10:42. Electronically submitted by Deepak Valentino ([email or web address]). SALOME BOYLE Apr 02, 2024 08:37
[2024-04-02] MEDS: SODIUM CHLORIDE 0.9% 1,000 ML IV ONE (08:42)
[2024-04-02 08:45] LABS: Urine Bacteria FEW /hpf (None Seen); Urine Blood 1+ /uL (Negative); Urine Clarity Clear (Clear); Urine Color Light-Yellow (Yellow); Urine Mucus FEW (None Seen); Urine Protein, UAD Negative (Negative); Urine Specific Gravity 1.017 (1.001-1.035); Urine Squamous Epithelial Cell FEW /hpf (<5); Urine Urobilinogen Normal (Negative); Urine WBC 4 /HPF (0-5); Urine pH 5.5 (5.0-9.0)
[2024-04-02] MEDS: KETOROLAC TROMETH 30 MG/ML 1ML VIAL IV ONE (09:06)
[2024-04-02] MEDS: ONDANSETRON HCL 4 MG/2 ML VIAL IV ONE (09:06)
[2024-04-02 09:14] LABS: Basophils # (auto) 0 10 ^3/uL (0-0.2); Basophils % (auto) 0.3 % (0.0-2.0); Eosinophils # (auto) 0 10 ^3/uL (0-0.8); Eosinophils % (auto) 0.2 % (0.0-7.0); Hematocrit 48.4 % (36.0-46.0); Hemoglobin 16.6 g/dL (12.2-16.2); Lymphocytes # (auto) 1.6 10 ^3/uL (0.4-5.4); Lymphocytes % (auto) 17.5 % (10.0-50.0); Mean Corpuscular Hemoglobin 29.7 pg (28.0-32.0); Mean Corpuscular Hgb Conc. 34.2 g/dL (32.0-36.0); Mean Corpuscular Volume 86.8 fL (80.0-100.0); Monocytes # (auto) 0.6 10 ^3/uL (0-1.3); Monocytes % (auto) 6.2 % (0.0-12.0); Neutrophils % (auto) 75.8 % (37.0-80.0); Nucleated Red Blood Cells % 0.2 %; Platelet Count (auto) 341 10^3/uL (140-450); Red Blood Cells 5.58 10^6/uL (4.0-5.20); Red Cell Distribution Width 12.9 % (11.8-14.3); White Blood Cell 9.2 10^3/uL (4.4-10.8)
--- NOTE | 2024-04-02 09:45 | DVH ---
CLINICAL INFORMATION: 63 years old, Female; RIGHT FLANK PAIN. TECHNIQUE: Axial CT images of the abdomen and pelvis were obtained without IV contrast. Coronal and sagittal reformatted images were obtained, reviewed, and stored. Evaluation of the parenchymal organs is limited without IV contrast. Evaluation of the bowel and mesentery is limited without oral contra st. All CT scans at this medical facility are performed using dose modulation techniques as appropria te to a performed exam including the following: Automated exposure control was utilized; adjustment o f the MA and/or KV according to patient size; and use of iterative reconstruction technique. CTDIvol = 14.38 mGy DLP = 687.13 mGy-cm COMPARISON: None FINDINGS: Motion artifact limits evaluation. Prominent beam hardening artifact from the surgical shanta dware of the lumbar spine and device in the right ventral abdominal wall also limits evaluation. Lung bases: Lung bases are clear. Liver: Grossly unremarkable in its noncontrast enhanced appearance. No abnormal density or focal les ion identified. Biliary: No calcified gallstones or biliary ductal dilatation. Spleen: Unremarkable. Pancreas: Grossly unremarkable in its noncontrast enhanced appearance. Adrenal glands: Unremarkable. No mass. Kidneys: There is no hydronephrosis. Portions of the courses of the ureters are not visualized due to extensive beam hardening artifact from the patient's surgical hardware in the lumbar spine and from the device in the right ventral abdominal wall. Aorta/Vascular: No aneurysm or significant calcification. Retroperitoneum: No mass or lymphadenopathy. Bowel/mesentery: No small bowel obstruction. No free air or free fluid. Appendix is visualized and ap pears unremarkable. There is moderate stool in the colon. Pelvic organs: Grossly unremarkable. Bladder: Unremarkable. No mass. Abdominal wall: There is a device in the right ventral abdominal / pelvic body wall with associated c atheter extending around the right side of the abdomen to the posterior pelvic body wall coursing int o the spinal canal near the L4-L5 level extending cephalad to the L1 level. Bones: No acute fracture or suspicious intraosseous lesion. Postsurgical changes in the lumbar spine paired spinal rods extending from the T8-S1 levels on the right and L1-S1 levels on the left, with as sociated bilateral transpedicular screws at L3 to S1. The left transpedicular screw at L4 appears to course lateral to the L4 vertebral body, does not appear to be within the vertebral body ( series 2 image 53). The right transpedicular screw at L3 also appears to be laterally positioned with respect of the L3 vertebral body ( series 2, image 44), although artifact limits evaluation. IMPRESSION: 1. Limited examination for the reasons described above, including extensive beam hardening artifact f rom postsurgical changes in the lumbar spine and device in the ventral abdominal wall. 2. No hydronephrosis and no renal or ureteral calculi visualized. 3. No small bowel obstruction. 4. Moderate stool in the colon. 5. Postsurgical changes in the lumbar spine as described above, somewhat limited evaluation due to mo tion artifact and beam hardening artifact. The right L3 and left L4 transpedicular screws appear to b e malpositioned, coursing laterally to their respective vertebral bodies. Correlate with clinical jordan hinton.
[2024-04-02 10:37] VITALS: O2SAT 100
[2024-04-02] MEDS ORDERED: LACT10SO3 PO (10:42)
[2024-04-02 10:51] VITALS: BP 134/71; PULSE 76; RESP 18
[2024-04-02] MEDS: MORPHINE SULFATE 4 MG/ML SYR/VIAL IV ONE (10:51)
[2024-04-02 10:58] LABS: Alanine Aminotransferase 15 U/L (7-40); Albumin 4.4 g/dL (3.2-4.8); Anion Gap 12 (5-15); Aspartate Aminotransferase 31 U/L (13-40); BUN/Creatinine Ratio 6.2 (10.0-20.0); Bilirubin, Total 0.7 mg/dL (0.2-1.0); Calcium 9.9 mg/dL (8.7-10.4); Chloride 105 mmol/L (98-107); Glucose 87 mg/dL (74-106); Potassium 4.8 mmol/L (3.5-5.1); Sodium 137 mmol/L (136-145); Total Protein 7.1 g/dL (5.7-8.2)
[2024-04-02 11:14] LABS: Alkaline Phosphatase 126 U/L (46-116); Blood Urea Nitrogen 5 mg/dL (9-23); Carbon Dioxide 20 mmol/L (20-31)
== END 2024-04-02 10:40 | disposition home or self-care (01) ==
LOC: ER 07:57
DX: K59.00 Constipation, unspecified (principal); M54.59 Other low back pain; J44.9 Chronic obstructive pulmonary disease, unspecified; E78.5 Hyperlipidemia, unspecified; I10 Essential (primary) hypertension; F12.90 Cannabis use, unspecified, uncomplicated; Z98.890 Other specified postprocedural states; Z79.84 Long term (current) use of oral hypoglycemic drugs
CPT/HCPCS: 36415; 74176; 80053; 81001; 85025; 96361; 96374; 99285; J1885; J2270; J2405; J7030

== ENCOUNTER 2024-04-04 11:24 | Inpatient (IN) | payer MEDICARE, OTHER ==
[~2024-04-04] VITALS: Ht 175.3 cm; Wt 88.0 kg
[~2024-04-04 11:24] MED LIST changes: +LACT10SO3 PO
--- NOTE | 2024-04-04 12:46 | DVH ---
Exam: CT CT AB PEL WO CON-NO ORAL OR IV History: ab pain. constipation. Obstruction Comparison Study: CT CT AB PEL WO CON-NO ORAL OR IV on DOS: 04/02/24 Technique: Multidetector spiral CT of the abdomen and pelvis was performed from lung bases to pubic symphysis. Imaging was performed without IV contrast. Axial, coronal and sagittal multiplanar reform ats were obtained from the axial data set by the technologist. Radiation dose : Abdomen/Pelvis: CTDIvol 14 mGy, DLP 836 mGy*cm. Findings: Evaluation of solid organs is limited due to lack of intravenous contrast use. Lung Bases: No acute or significant lung base finding. Normal heart size. No pleural or pericardial effusion. Liver: The liver is normal in size. No focal lesions. Gallbladder and biliary Tree: Gallbladder is mildly distended. Spleen: Unremarkable Pancreas: The pancreas is grossly normal in appearance. Adrenal Glands: Unremarkable Kidneys: Kidneys are grossly normal without calculi or hydronephrosis. Bladder: Grossly unremarkable for degree of distention. Bowel: The stomach is grossly normal in appearance. Small bowel and colon are normal in caliber and d istribution. Normal appendix is visualized in the right lower quadrant without findings of appendici tis. Ascites: Absent Lymphadenopathy: No mesenteric, retroperitoneal or periportal lymphadenopathy. Abdominal wall and Mesentery: Unremarkable. Vasculature: The visualized abdominal aorta is normal in size and caliber. Evaluation of abdominal a nd pelvic vessels is limited due to lack of intravenous contrast. Pelvic Organs: Unremarkable Musculoskeletal: Postsurgical changes throughout the visualized thoracolumbar spine. IMPRESSION: 1. Limited by metallic artifact related to spinal hardware and a neural stimulator. No acute abdomina l finding. No hydronephrosis or nephrolithiasis. No evidence of obstruction. Mildly distended gallbla dder. Consider further evaluation with right upper quadrant ultrasound. Radiation optimization: All CT scans at this facility use at least one of these dose optimization jose hniques: Automated exposure control mA and/or kV adjustment per patient size (includes targeted exams where dose is matched to clinical indication) or iterative reconstruction. HS:Y
[2024-04-04 13:23] LABS: Basophils # (auto) 0 10 ^3/uL (0-0.2); Basophils % (auto) 0.4 % (0.0-2.0); Eosinophils # (auto) 0 10 ^3/uL (0-0.8); Eosinophils % (auto) 0.1 % (0.0-7.0); Hematocrit 48.8 % (36.0-46.0); Hemoglobin 16.8 g/dL (12.2-16.2); Lymphocytes # (auto) 1.9 10 ^3/uL (0.4-5.4); Lymphocytes % (auto) 22.9 % (10.0-50.0); Mean Corpuscular Hgb Conc. 34.4 g/dL (32.0-36.0); Monocytes # (auto) 0.6 10 ^3/uL (0-1.3); Monocytes % (auto) 7.1 % (0.0-12.0); Neutrophils # (auto) 5.6 10 ^3/uL (1.6-8.6); Neutrophils % (auto) 69.5 % (37.0-80.0); Nucleated Red Blood Cells % 0.1 %; Platelet Count (auto) 284 10^3/uL (140-450); White Blood Cell 8.1 10^3/uL (4.4-10.8)
[2024-04-04 13:42] LABS: Alanine Aminotransferase 15 U/L (7-40); Anion Gap 7 (5-15); Blood Urea Nitrogen 10 mg/dL (9-23); Calcium 10.1 mg/dL (8.7-10.4); Carbon Dioxide 30 mmol/L (20-31); Chloride 100 mmol/L (98-107); Glucose 95 mg/dL (74-106); Potassium 4.1 mmol/L (3.5-5.1); Sodium 137 mmol/L (136-145)
[2024-04-04 13:43] LABS: Bilirubin, Total 0.7 mg/dL (0.2-1.0); Total Protein 7.5 g/dL (5.7-8.2)
[2024-04-04 13:44] LABS: Albumin 4.8 g/dL (3.2-4.8); Alkaline Phosphatase 132 U/L (46-116); Aspartate Aminotransferase < 8 U/L (13-40)
--- NOTE | 2024-04-04 14:02 | DVH ---
EXAM: US GALLBLADDER CLINICAL HISTORY: distended gallblader TECHNIQUE: Grayscale and limited color flow doppler ultrasound of the right upper quadrant is perfor med. COMPARISON: None Findings: Liver measures 12.4 cm in length with normal echotexture and contour. No evidence of focal hepatic le sions or intra- or extrahepatic ductal dilatation. Common bile duct not visualized. Normal hepatopeda l flow noted within the portal vein. No perihepatic free fluid is noted. Gallbladder appears within normal limits with gallbladder wall thickness measuring 0.2 cm. No evidenc e of shadowing calculi, biliary sludge or pericholecystic fluid. Negative sonographic Macias's sign. Pancreas not well-visualized due to overlying bowel gas. Right kidney measures 9.0i cm with normal contours, echotexture and cortical thickness. No evidence o f hydronephrosis, calculi, cystic or solid renal lesions. Partially visualized inferior vena cava unremarkable. Impression: 1. No evidence of acute right upper quadrant abnormalities.
[2024-04-04 15:58] LABS: Lipase 28 U/L (12-53)
--- NOTE | 2024-04-04 16:20 | ED.PDOC ---
GI ASSESSMENT HPI Comments This is a pleasant 63-year-old female who presents to the ER 2 times within the same week with the same complaint of nonradiating right lower quadrant abdominal pain. Patient was seen a week ago and was discharged same day after CT results showed moderate stool. The patient was prescribed lactulose no improvement. Reports her last bowel movement was one week ago. Also complains of persistent pain that is rated as moderate to severe. Pain is located to the right lower quadrant. Unable to get adequate relief with [id number] medications Denies fevers chills night sweats unintentional weight loss Denies nausea vomiting diarrhea Denies blood in the stool Denies sick contact with similar symptoms Denies new foods/medications Denies family history of GI cancer Chief Complaint: Constipation Time Seen by MD: 12:14 Primary Care Provider: MARCELA Cuadra Notes: Nurses Notes, Medications, Allergies Allergies: Coded Allergies: NO KNOWN ALLERGIES (Unverified , 10/28/23) Home Meds Active Scripts Lactulose (Lactulose) 10 Gm/15 Ml Madyson, 30 ML PO BID, #280 ML Prov:SALOME BOYLE 04/02/24 Cyclobenzaprine Hcl (Cyclobenzaprine Hcl) 10 Mg Tab, 10 MG PO BID PRN, #20 TAB Prov:KAHLIL APONTE MD 01/31/23 Reported Medications Rosuvastatin Calcium (Crestor) 20 Mg Tab, 1 TAB PO DAILY, #30 TAB 5 Refills 12/15/23 Aspirin (Aspir-Low) 81 Mg Tab, 81 MG PO DAILY for 30 Days, MG 12/15/23 Lisinopril (Lisinopril) 20 Mg Tab, 20 MG PO DAILY, TAB 03/18/21 Omeprazole ([facility] Omeprazole) 20 Mg Tab, 20 MG PO DAILY for 90 Days 09/06/13 Information Source: Patient Mode of Arrival: EMS Past Medical History PAST MEDICAL HISTORY: Anxiety, COPD, Depression, High Lipids, HTN, UTI'S Surgical History: BTL, Tonsillectomy [employer] History: No Pertinent [employer]TER History Family History Family History: Reviewed,noncontributory to illness Social History Smoker: Non-Smoker Alcohol: Denies ETOH Use Drugs: Marijuana Lives In: Home All Other Systems: Reviewed and Negative (Per HPI) Physical Exam General Appearance: No Apparent Distress, Normal HEENT: Head (Normocephalic atraumatic), Normal ENT Inspection, Pharynx Normal, TMs Normal Neck: Full Range of Motion, Non-Tender, Normal, Normal Inspection Respiratory: Chest Non-Tender, Lungs Clear, No Accessory Muscle Use, No Respiratory Distress, Normal Breath Sounds Cardiovascular: No Murmur, No Gallop, Regular Rate/Rhythm Breast Exam: Deferred Gastrointestinal: No Organomegaly, No Pulsatile Mass, Normal Bowel Sounds, Soft, Tenderness (Tenderness to the right lower quadrant. No guarding. Positive for rebound tenderness) Genitalia: Deferred Pelvic: Deferred Rectal: Deferred Extremities: No calf tenderness, Normal capillary refill, Normal inspection, Normal range of motion, Non-tender, No pedal edema Musculoskeletal : Apperance: Normal Neurologic: Alert, No Motor Deficits, Normal Affect, Normal Mood, No Sensory Deficits Cerebellar Function: Normal Reflexes: Normal Skin: Dry, Normal Color, Warm Lymphatic: No Adenopathy Was a procedure done? Was a procedure done?: No GI differential Dx Differential Diagnosis: Appendicitis, Aortic dissection, Gastroenteritis, Ischemic Bowel, UTI, Food Poisoning, Bacterial, Mass, Other X-Ray, Labs, Meds, VS Vital Signs Date Time Temp Pulse Resp B/P (MAP) Pulse Ox O2 Delivery O2 Flow Rate FiO2 04/04/24 15:15 98.9 90 16 142/96 (111) 97 98.9 04/04/24 11:26 98.9 90 16 142/94 (110) 97 04/04/24 11:25 83 Lab Test 04/04/24 13:11 Range/Units White Blood Count 8.1 4.4-10.8 10^3/uL Red Blood Count 5.60 H 4.0-5.20 10^6/uL Hemoglobin 16.8 H 12.2-16.2 g/dL Hematocrit 48.8 H 36.0-46.0 % Mean Corpuscular Volume 87.0 80.0-100.0 fL Mean Corpuscular Hemoglobin 30.0 28.0-32.0 pg Mean Corpuscular Hemoglobin Concent 34.4 32.0-36.0 g/dL Red Cell Distribution Width 13.0 11.8-14.3 % Platelet Count 284 140-450 10^3/uL Mean Platelet Volume 7.7 6.9-10.8 fL Neutrophils (%) (Auto) 69.5 37.0-80.0 % Lymphocytes (%) (Auto) 22.9 10.0-50.0 % Monocytes (%) (Auto) 7.1 0.0-12.0 % Eosinophils (%) (Auto) 0.1 0.0-7.0 % Basophils (%) (Auto) 0.4 0.0-2.0 % Neutrophils # (Auto) 5.6 1.6-8.6 10 ^3/uL Lymphocytes # (Auto) 1.9 0.4-5.4 10 ^3/uL Monocytes # (Auto) 0.6 0-1.3 10 ^3/uL Eosinophils # (Auto) 0 0-0.8 10 ^3/uL Basophils # (Auto) 0 0-0.2 10 ^3/uL Nucleated Red Blood Cells 0.1 % Sodium Level 137 136-145 mmol/L Potassium Level 4.1 3.5-5.1 mmol/L Chloride Level 100 98-107 mmol/L Carbon Dioxide Level 30 20-31 mmol/L Anion Gap 7 5-15 Blood Urea Nitrogen 10 9-23 mg/dL Creatinine 0.83 0.550-1.02 mg/dL Glomerular Filtration Rate Calc 80 >90 mL/min BUN/Creatinine Ratio 12.0 10.0-20.0 Serum Glucose 95 74-106 mg/dL Calcium Level 10.1 8.7-10.4 mg/dL Total Bilirubin 0.7 0.2-1.0 mg/dL Aspartate Amino Transferase (AST) < 8 L 13-40 U/L Alanine Aminotransferase (ALT) 15 7-40 U/L Alkaline Phosphatase 132 H 46-116 U/L Total Protein 7.5 5.7-8.2 g/dL Albumin 4.8 3.2-4.8 g/dL Lipase 28 12-53 U/L PATIENT: CASS HERNANDEZ AACCT: [id number]: [id number] : 1960 LOC: ER ROOM / BED: / AGE / SEX: 63 / F ADM STATUS: REG ER SERVICE 1212 ORDERING PHYSICIAN: POONAM LEVY NP PROCEDURE(s): ABPL - CT AB PEL WO CON-NO ORAL OR IV REASON: ab pain. constipation. Obstruction?? ORDER NUMBER(s): [id number], ACCESSION NUMBER(s): [id number] Exam: CT CT AB PEL WO CON-NO ORAL OR IV History: ab pain. constipation. Obstruction Comparison Study: CT CT AB PEL WO CON-NO ORAL OR IV on DOS: 04/02/24 Technique: Multidetector spiral CT of the abdomen and pelvis was performed from lung bases to pubic symphysis. Imaging was performed without IV contrast. Axial, coronal and sagittal multiplanar reformats were obtained from the axial data set by the technologist. Radiation dose : Abdomen/Pelvis: CTDIvol 14 mGy, DLP 836 mGy*cm. Findings: Evaluation of solid organs is limited due to lack of intravenous contrast use. Lung Bases: No acute or significant lung base finding. Normal heart size. No pleural or pericardial effusion. Liver: The liver is normal in size. No focal lesions. Gallbladder and biliary Tree: Gallbladder is mildly distended. Spleen: Unremarkable Pancreas: The pancreas is grossly normal in appearance. Adrenal Glands: Unremarkable Kidneys: Kidneys are grossly normal without calculi or hydronephrosis. Bladder: Grossly unremarkable for degree of distention. Bowel: The stomach is grossly normal in appearance. Small bowel and colon are normal in caliber and distribution. Normal appendix is visualized in the right lower quadrant without findings of appendicitis. Ascites: Absent Lymphadenopathy: No mesenteric, retroperitoneal or periportal lymphadenopathy. Abdominal wall and Mesentery: Unremarkable. Vasculature: The visualized abdominal aorta is normal in size and caliber. Evaluation of abdominal and pelvic vessels is limited due to lack of intravenous contrast. Pelvic Organs: Unremarkable Musculoskeletal: Postsurgical changes throughout the visualized thoracolumbar spine. IMPRESSION: 1. Limited by metallic artifact related to spinal hardware and a neural stimulator. No acute abdominal finding. No hydronephrosis or nephrolithiasis. No evidence of obstruction. Mildly distended gallbladder. Consider further evaluation with right upper quadrant ultrasound. Radiation optimization: All CT scans at this facility use at least one of these dose optimization techniques: Automated exposure control mA and/or kV adjustment per patient size (includes targeted exams where dose is matched to clinical indication) or iterative reconstruction. HS:Y ATED BY: DEXTER THOMPSON MD DICTATED DATE/TIME: 04/04/24 1243 SIGNED BY: DEXTER THOMPSON MD SIGNED DATE/TIME: 04/04/24 1243 CC: PATIENT: CASS HERNANDEZ ACCT: [id number] UNIT: [id number] : 1960 LOC: ER ROOM / BED: / AGE / SEX: 63 / F ADM STATUS: REG ER SERVICE 1258 ORDERING PHYSICIAN: POONAM LEVY NP PROCEDURE(s): GBUS - GALLBLADDER REASON: distended gallblader ORDER NUMBER(s): [id number], ACCESSION NUMBER(s): [id number] EXAM: US GALLBLADDER CLINICAL HISTORY: distended gallblader TECHNIQUE: Grayscale and limited color flow doppler ultrasound of the right upper quadrant is performed. COMPARISON: None Findings: Liver measures 12.4 cm in length with normal echotexture and contour. No eviden ce of focal hepatic lesions or intra- or extrahepatic ductal dilatation. Common bile duct not visualized. Normal hepatopedal flow noted within the portal vein. No perihepatic free fluid is noted. Gallbladder appears within normal limits with gallbladder wall thickness measuring 0.2 cm. No evidence of shadowing calculi, biliary sludge or pericholecystic fluid. Negative sonographic Macias's sign. Pancreas not well-visualized due to overlying bowel gas. Right kidney measures 9.0i cm with normal contours, echotexture and cortical thickness. No evidence of hydronephrosis, calculi, cystic or solid renal lesions. Partially visualized inferior vena cava unremarkable. Impression: 1. No evidence of acute right upper quadrant abnormalities. ATED BY: ELYSE LAUREANO DO DICTATED DATE/TIME: 04/04/24 1400 SIGNED BY: ELYSE LAUREANO DO SIGNED DATE/TIME: 04/04/24 1400 CC: X-Ray, Labs, Meds, VS Comment The patient presented to the Emergency Department with abdominal pain. Work up demonstrated no obvious source for the patient's symptoms. History and ER workup do not suggest appendicitis, AAA, bowel ischemia, bowel perforation, bowel obstruction, constipation, cholecystitis, diverticulitis/diverticulosis, pneumonia, urinary tract infection/pyelonephritis, hernia or other genitourinary etiology. On reevaluation the patient is not feeling better. WBC CBC reassuring UA pending I informed the patient of the test results, and they are uncomfortable being discharged home d/t non intractable abdominal pain The patient's workup reveals that the patient needs further evaluation and/or treatment for the above medical conditions. Possible endoscopy and colonoscopy Patient verbalized understanding of the above and is awaiting further evaluation by the admitting service. Case discussed with chief medical officer of the day for admission and ED evaluation. Time of 1ST Reevaluation: 16:14 Reevaluation 1ST: Unchanged Patient Education/Counseling: Diagnosis, Treatment Family Education/Counseling: Diagnosis, Treatment Departure 1 Departure Time of Disposition: 16:14 Impression: Primary Impression: Abdominal pain Qualified Codes: R10.31 - Right lower quadrant pain Disposition: 09 ADMITTED INPATIENT Condition: Fair Critical Care Note Critical Care Time?: No Stability Stability form required: No Heart Score Heart Score: Heart Score Response (Comments) Value History N/A 0 EKG N/A 0 Age N/A 0 Risk Factors N/A 0 Troponin N/A 0 Total 0 POONAM LEVY NP Apr 04, 2024 16:20
--- NOTE | 2024-04-04 17:15 | ECG ---
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
[2024-04-04] MEDS: D5W/SOD CHLO 0.9% 1,000 ML IV ONE (18:00)
[2024-04-04] MEDS ORDERED: MORPHINE SULFATE INJ 2 MG/ml SYRG IM ONE (18:00)
[2024-04-04 19:58] VITALS: BP 148/92; PULSE 72; RESP 18; TEMP 98.4; O2SAT 97
[2024-04-04] MEDS: MORPHINE SULFATE INJ 2 MG/ml SYRG IM ONE (20:22)
--- NOTE | 2024-04-04 20:34 | DVHHP2 ---
History of Present Illness Reason for Visit: Abdominal pain History of Present Illness 63-year-old female presents for evaluation of abdominal pain. Patient presents with a one-week history of right lower quadrant abdominal pain with associated constipation, nausea and vomiting. Patient was seen three days ago was diagnosed with constipation. She was given lactulose as she states she has not gotten relief with medications. Denies fever or chills. No other acute complaints reported. Past Medical History Dyslipidemia, hypertension, depression, COPD Past Surgical History Tonsillectomy and BTL Family History Noncontributory Smoke: No ALCOHOL: none Drugs: Marijuana Lives: with Family Review of Systems Review of Systems Review of systems are currently negative otherwise addressed in HPI. Allergies: Coded Allergies: NO KNOWN ALLERGIES (Unverified , 10/28/23) Medications Current Medications Medications Dose Ordered Sig/Lien Route Start Time Stop Time Status Last Admin Dose Admin Acetaminophen/ Hydrocodone Bitart 1 tab Q4HP PRN PO 04/04/24 19:00 Temazepam 15 mg QHSP PRN PO 04/04/24 19:00 Ondansetron HCl 4 mg Q4HP PRN IV 04/04/24 19:00 Acetaminophen 650 mg Q6HP PRN PO 04/04/24 19:00 Exam Vital Signs Vital Signs Date Time Temp Pulse Resp B/P (MAP) Pulse Ox O2 Delivery O2 Flow Rate FiO2 04/04/24 20:22 72 18 148/92 04/04/24 19:58 98.4 97 98.4 04/04/24 19:25 Room Air* 0 21 Exam Gen: 63-year-old female in mild distress Skin: Warm, dry, normal color and texture, no rash. HEENT: Normocephalic atraumatic, mucous membranes moist and pink. Neck: Cervical and supraclavicular nodes normal without enlargement, trachea is midline, thyroid gland is normal without masses. Pulmonary: Clear to auscultation and percussion bilaterally. Cardiac: Regular rate and rhythm. No murmur Abdomen: Soft, right lower quadrant tenderness, nondistended, bowel sounds present all 4 quadrants, no guarding, no rigidity, no organomegaly. Extremities: No cyanosis, clubbing, no edema Neuro: Cranial nerves II through XII grossly intact, normal affect and speech, no focal motor deficits. Labs/Xrays ORDERING PHYSICIAN: MILDRED,POONAM F SALESPERSON HEARING AIDS PROCEDURE(s): ABPL - CT AB PEL WO CON-NO ORAL OR IV REASON: ab pain. constipation. Obstruction?? ORDER NUMBER(s): [id number], ACCESSION NUMBER(s): [id number] Exam: CT CT AB PEL WO CON-NO ORAL OR IV History: ab pain. constipation. Obstruction Comparison Study: CT CT AB PEL WO CON-NO ORAL OR IV on DOS: 04/02/24 Technique: Multidetector spiral CT of the abdomen and pelvis was performed from lung bases to pubic symphysis. Imaging was performed without IV contrast. Axial, coronal and sagittal multiplanar reformats were obtained from the axial data set by the technologist. Radiation dose : Abdomen/Pelvis: CTDIvol 14 mGy, DLP 836 mGy*cm. Findings: Evaluation of solid organs is limited due to lack of intravenous contrast use. Lung Bases: No acute or significant lung base finding. Normal heart size. No pleural or pericardial effusion. Liver: The liver is normal in size. No focal lesions. Gallbladder and biliary Tree: Gallbladder is mildly distended. Spleen: Unremarkable Pancreas: The pancreas is grossly normal in appearance. Adrenal Glands: Unremarkable Kidneys: Kidneys are grossly normal without calculi or hydronephrosis. Bladder: Grossly unremarkable for degree of distention. Bowel: The stomach is grossly normal in appearance. Small bowel and colon are normal in caliber and distribution. Normal appendix is visualized in the right lower quadrant without findings of appendicitis. Ascites: Absent Lymphadenopathy: No mesenteric, retroperitoneal or periportal lymphadenopathy. Abdominal wall and Mesentery: Unremarkable. Vasculature: The visualized abdominal aorta is normal in size and caliber. Evaluation of abdominal and pelvic vessels is limited due to lack of intravenous contrast. Pelvic Organs: Unremarkable Musculoskeletal: Postsurgical changes throughout the visualized thoracolumbar spine. IMPRESSION: 1. Limited by metallic artifact related to spinal hardware and a neural stimulator. No acute abdominal finding. No hydronephrosis or nephrolithiasis. No evidence of obstruction. Mildly distended gallbladder. Consider further evaluation with right upper quadrant ultrasound. Radiation optimization: All CT scans at this facility use at least one of these dose optimization techniques: Automated exposure control mA and/or kV adjustment per patient size (includes targeted exams where dose is matched to clinical indication) or iterative reconstruction. HS:Y RING PHYSICIAN: POONAM LEVY NP PROCEDURE(s): GBUS - GALLBLADDER REASON: distended gallblader ORDER NUMBER(s): [id number], ACCESSION NUMBER(s): [id number] EXAM: US GALLBLADDER CLINICAL HISTORY: distended gallblader TECHNIQUE: Grayscale and limited color flow doppler ultrasound of the right upper quadrant is performed. COMPARISON: None Findings: Liver measures 12.4 cm in length with normal echotexture and contour. No evidence of focal hepatic lesions or intra- or extrahepatic ductal dilatation. Common bile duct not visualized. Normal hepatopedal flow noted within the portal vein. No perihepatic free fluid is noted. Gallbladder appears within normal limits with gallbladder wall thickness measuring 0.2 cm. No evidence of shadowing calculi, biliary sludge or pericholecystic fluid. Negative sonographic Macias's sign. Pancreas not well-visualized due to overlying bowel gas. Right kidney measures 9.0i cm with normal contours, echotexture and cortical thickness. No evidence of hydronephrosis, calculi, cystic or solid renal lesions. Partially visualized inferior vena cava unremarkable. Impression: 1. No evidence of acute right upper quadrant abnormalities. Labs Test 04/04/24 13:11 Range/Units White Blood Count 8.1 4.4-10.8 10^3/uL Red Blood Count 5.60 H 4.0-5.20 10^6/uL Hemoglobin 16.8 H 12.2-16.2 g/dL Hematocrit 48.8 H 36.0-46.0 % Mean Corpuscular Volume 87.0 80.0-100.0 fL Mean Corpuscular Hemoglobin 30.0 28.0-32.0 pg Mean Corpuscular Hemoglobin Concent 34.4 32.0-36.0 g/dL Red Cell Distribution Width 13.0 11.8-14.3 % Platelet Count 284 140-450 10^3/uL Mean Platelet Volume 7.7 6.9-10.8 fL Neutrophils (%) (Auto) 69.5 37.0-80.0 % Lymphocytes (%) (Auto) 22.9 10.0-50.0 % Monocytes (%) (Auto) 7.1 0.0-12.0 % Eosinophils (%) (Auto) 0.1 0.0-7.0 % Basophils (%) (Auto) 0.4 0.0-2.0 % Neutrophils # (Auto) 5.6 1.6-8.6 10 ^3/uL Lymphocytes # (Auto) 1.9 0.4-5.4 10 ^3/uL Monocytes # (Auto) 0.6 0-1.3 10 ^3/uL Eosinophils # (Auto) 0 0-0.8 10 ^3/uL Basophils # (Auto) 0 0-0.2 10 ^3/uL Nucleated Red Blood Cells 0.1 % Sodium Level 137 136-145 mmol/L Potassium Level 4.1 3.5-5.1 mmol/L Chloride Level 100 98-107 mmol/L Carbon Dioxide Level 30 20-31 mmol/L Anion Gap 7 5-15 Blood Urea Nitrogen 10 9-23 mg/dL Creatinine 0.83 0.550-1.02 mg/dL Glomerular Filtration Rate Calc 80 >90 mL/min BUN/Creatinine Ratio 12.0 10.0-20.0 Serum Glucose 95 74-106 mg/dL Calcium Level 10.1 8.7-10.4 mg/dL Total Bilirubin 0.7 0.2-1.0 mg/dL Aspartate Amino Transferase (AST) < 8 L 13-40 U/L Alanine Aminotransferase (ALT) 15 7-40 U/L Alkaline Phosphatase 132 H 46-116 U/L Total Protein 7.5 5.7-8.2 g/dL Albumin 4.8 3.2-4.8 g/dL Lipase 28 12-53 U/L Assessment/Plan Assessment/Plan Assessment Acute abdominal pain Essential hypertension COPD Plan Admit the patient to [facility] [place] [place] to the hospitalist GI consultation Clear liquid diet Pain management Continue treatment per orders. Plan discussed with: Patient My Orders Orders - LOUISE GUZMAN Procedure Category Date Status Time Admit ADMIT 04/04/24 Transmitted 18:46 * Gi Dvh Block Feeder CONS 04/04/24 Transmitted 18:49 Hydrocodone-Acet PHA 04/04/24 In Process 5/325mg Tab ([place] 19:00 Temazepam (Restoril) PHA 04/04/24 In Process 19:00 Ondansetron Hcl PHA 04/04/24 In Process (Zofran) 19:00 Complete Blood Count LAB 04/05/24 Verified 04:00 Condition: Stable SHERI 04/04/24 In Process 18:49 Acetaminophen Tablet PHA 04/04/24 In Process (Tylenol Tablet) 19:00 Bedrest With Bathroom SHERI 04/04/24 In Process Privileg 18:49 Sodium Chloride 0.9% PHA 04/04/24 In Process 19:00 Date of Service: Apr 04, 2024 Billing Provider: LOUISE GUZMAN Common Visit Codes: [id number] INP/OBS CARE (MOD) LOUISE GUZMAN Apr 04, 2024 20:34
[2024-04-04] MEDS: SODIUM CHLORIDE 0.9% 1,000 ML IV ONE (21:00)
[2024-04-04] MEDS: ONDANSETRON HCL 4 MG/2 ML VIAL IV PRN (21:45)
[2024-04-04] MEDS: HYDROcodone-ACET 5/325MG TAB PO PRN (21:46)
[2024-04-04] MEDS: FLEET ENEMA(ADULT) 135 ML PR ONE (22:16)
[2024-04-05 06:14] LABS: Urine Bacteria None Seen /hpf (None Seen)
[2024-04-05 06:31] LABS: Urine Blood 1+ /uL (Negative); Urine Clarity Clear (Clear); Urine Color Yellow (Yellow); Urine Mucus FEW (None Seen); Urine Protein, UAD Negative (Negative); Urine Specific Gravity 1.017 (1.001-1.035); Urine Squamous Epithelial Cell FEW /hpf (<5); Urine Urobilinogen Normal (Negative); Urine WBC 4 /HPF (0-5); Urine pH 5.5 (5.0-9.0)
[2024-04-05 08:03] LABS: Basophils # (auto) 0 10 ^3/uL (0-0.2); Basophils % (auto) 0.4 % (0.0-2.0); Eosinophils # (auto) 0 10 ^3/uL (0-0.8); Eosinophils % (auto) 0.1 % (0.0-7.0); Hematocrit 47.1 % (36.0-46.0); Hemoglobin 16.1 g/dL (12.2-16.2); Lymphocytes # (auto) 1.8 10 ^3/uL (0.4-5.4); Lymphocytes % (auto) 24.8 % (10.0-50.0); Mean Corpuscular Hemoglobin 29.8 pg (28.0-32.0); Mean Corpuscular Hgb Conc. 34.2 g/dL (32.0-36.0); Mean Corpuscular Volume 87.1 fL (80.0-100.0); Monocytes # (auto) 0.6 10 ^3/uL (0-1.3); Monocytes % (auto) 8.5 % (0.0-12.0); Neutrophils # (auto) 4.7 10 ^3/uL (1.6-8.6); Neutrophils % (auto) 66.2 % (37.0-80.0); Platelet Count (auto) 242 10^3/uL (140-450); Red Blood Cells 5.41 10^6/uL (4.0-5.20); Red Cell Distribution Width 12.6 % (11.8-14.3); White Blood Cell 7.1 10^3/uL (4.4-10.8)
[2024-04-05 08:40] VITALS: PULSE 72; RESP 12; O2SAT 100
[2024-04-05 13:11] VITALS: BP 159/75; PULSE 65; RESP 18; TEMP 98.1; O2SAT 98
--- NOTE | 2024-04-05 13:39 | DVHPN2 ---
Changes from previous H/P or p: No Changes Objective Vitals Vital Signs Date Time Temp Pulse Resp B/P (MAP) Pulse Ox O2 Delivery O2 Flow Rate FiO2 04/05/24 13:11 98.1 65 18 159/75 (103) 98 98.1 04/05/24 08:40 Room Air* 0 21 Intake/Output Intake and Output 04/05/24 07:00 Intake Total 1450 ml Balance 1450 ml Intake IV Total 1450 ml Medications Current Medications Medications Dose Ordered Sig/Lien Route Start Time Stop Time Status Last Admin Dose Admin Acetaminophen/ Hydrocodone Bitart 1 tab Q4HP PRN PO 04/04/24 19:00 04/05/24 13:33 1 TAB Temazepam 15 mg QHSP PRN PO 04/04/24 19:00 Ondansetron HCl 4 mg Q4HP PRN IV 04/04/24 19:00 04/04/24 21:45 4 MG Acetaminophen 650 mg Q6HP PRN PO 04/04/24 19:00 Laboratory Results Laboratory Tests 04/04/24 13:11 04/05/24 01:28 Urinalysis Test 04/05/24 01:28 Urine Color Yellow (Yellow) Urine Clarity Clear (Clear) Urine pH 5.5 (5.0-9.0) Urine Specific [place] 1.017 (1.001-1.035) Urine Protein Negative (Negative) Urine Ketones 1+ (Negative) H Urine Blood 1+ /uL (Negative) H Urine Nitrite Negative (Negative) Urine Bilirubin Negative (Negative) Urine Urobilinogen Normal mg/dL (Negative) Urine Leukocyte Esterase Negative /uL (Negative) Urine RBC 5 /hpf (0 - 4) Urine Microscopic WBC 4 /HPF (0-5) Urine Squamous Epithelial Cells Few /hpf (<5) Urine Bacteria None seen /hpf (None Seen) Urine Mucus Few (None Seen) Urine Glucose Normal mg/dL (Normal) Labs and/or images reviewed: Labs reviewed by me, Image(s) reviewed by me Assessment/Plan Assessment/Plan Acute abdominal pain possibly secondary to constipation: Lactulose CT abdomen pelvis negative gallbladder ultrasound negative Hypertension Hypercholesterolemia Depression COPD PCP Dr. Lico Tate Time spent 45 minutes Plan discussed with: Patient Date of Service: Apr 05, 2024 Billing Provider: ALBERTO CASE MD Common Visit Codes: [id number] INP/OBS CARE(HIGH) ALBERTO CASE MD Apr 05, 2024 13:39
--- NOTE | 2024-04-05 14:48 | DVHCONRES ---
Date Seen: Apr 05, 2024 Resident Creating Document: VIDYA KEARNEY RESIDENT Referring Physician Michael MORELOS History of Present Illness This is a 64-year-old female patient with PMHx of hypertension, hyperlipidemia, GERD, right-sided kidney stone, depression, stress UA, grade 2 cystocele status post repair in December 27, 2023, chronic back pain who presented to the ER with a chief complaint of right-sided abdominal pain and constipation ongoing for the past 7 days. She reports she was seen in the here last week for the same complaint when she was prescribed lactulose which did not help her condition. She has chronic constipation and reports that her last bowel movement was 7 days back, reports right lower quadrant abdominal pain going to the right lower back for the past 6 days. Associated symptoms include fever and chills, heartburn, nausea and vomiting and low appetite. She denies any weight loss or weight gain. Patient takes Traer and already has a Dilaudid pump for chronic back pain. GI consultation for abdominal pain, patient was giving enema and lactulose which did not resolve or condition. Home medications: Lisinopril, aspirin, cyclobenzaprine, omeprazole, rosuvast atin, Dilaudid and Traer Patient seen and examined at the bedside. Rectal exam performed, tone is intact, external hemorrhoids seen, no stool in the rectal vault. No bleeding or polyps noticed. Family History: Alzheimer's disease G8 MOTHER Cancer G8 FATHER (ESOPHAGEAL CA) G8 SISTER (BRAIN CA) FH: heart attack Family history: Hypertension Allergies: Coded Allergies: NO KNOWN ALLERGIES (Unverified , 10/28/23) Home Meds Active Scripts Lactulose (Lactulose) 10 Gm/15 Ml Madyson, 30 ML PO BID, #280 ML Prov:SALOME BOYLE 04/02/24 Cyclobenzaprine Hcl (Cyclobenzaprine Hcl) 10 Mg Tab, 10 MG PO BID PRN, #20 TAB Prov:KAHLIL APONTE MD 01/31/23 Reported Medications Rosuvastatin Calcium (Crestor) 20 Mg Tab, 1 TAB PO DAILY, #30 TAB 5 Refills 12/15/23 Aspirin (Aspir-Low) 81 Mg Tab, 81 MG PO DAILY for 30 Days, MG 12/15/23 Lisinopril (Lisinopril) 20 Mg Tab, 20 MG PO DAILY, TAB 03/18/21 Omeprazole ([facility] Omeprazole) 20 Mg Tab, 20 MG PO DAILY for 90 Days 09/06/13 Current Medications Current Medications Medications (Trade) Dose Ordered Sig/Lien Route PRN Reason Start Time Stop Time Status Last Admin Acetaminophen/ Hydrocodone Bitart (Traer 5/325MG Tab) 1 tab Q4HP PRN PO MODERATE PAIN (4-6 PAIN SCALE) 04/04/24 19:00 04/05/24 13:33 Temazepam (Restoril) 15 mg QHSP PRN PO FOR INSOMNIA 04/04/24 19:00 Ondansetron HCl (Zofran) 4 mg Q4HP PRN IV NAUSEA / VOMITING 04/04/24 19:00 04/04/24 21:45 Acetaminophen (Tylenol Tablet) 650 mg Q6HP PRN PO PAIN SCALE 1-3 OR TEMP>100.4 04/04/24 19:00 Lactulose 30 ml BID PO 04/05/24 22:00 Vital Signs Vital Signs Date Time Temp Pulse Resp B/P (MAP) Pulse Ox O2 Delivery O2 Flow Rate FiO2 04/05/24 13:11 98.1 65 18 159/75 (103) 98 98.1 04/05/24 08:40 Room Air* 0 21 Physical Exam Overweight female patient sitting in the chair in holding area comfortably, no acute distress General: Overweight, afebrile, palor, mucosae are moist Cardiovascular: Regular S1 and S2. No murmurs, gallops or rubs. No JVD elevation. No pedal edema Respiratory: Normal B/L air entry on room air. Clear lung sounds on auscultation Abdomen: Soft, right lower quadrant tenderness, nondistended, hyperactive bowel sounds, no rebound tenderness, no organomegaly, no masses Genitourinary: Deferred MSK/skin: Mobilizes 4 limbs. Skin is dry and warm Neurological: No motor, no sensitive deficits, normal speech. Pupils are isocoric and reactive. Psych/Mental Status: A/Ox4 Labs/Diagnostic Data Labs Test 04/05/24 01:28 04/04/24 13:11 Range/Units White Blood Count 7.1 4.4-10.8 10^3/uL Red Blood Count 5.41 H 4.0-5.20 10^6/uL Hemoglobin 16.1 12.2-16.2 g/dL Hematocrit 47.1 H 36.0-46.0 % Mean Corpuscular Volume 87.1 80.0-100.0 fL Mean Corpuscular Hemoglobin 29.8 28.0-32.0 pg Mean Corpuscular Hemoglobin Concent 34.2 32.0-36.0 g/dL Red Cell Distribution Width 12.6 11.8-14.3 % Platelet Count 242 140-450 10^3/uL Mean Platelet Volume 8.5 6.9-10.8 fL Neutrophils (%) (Auto) 66.2 37.0-80.0 % Lymphocytes (%) (Auto) 24.8 10.0-50.0 % Monocytes (%) (Auto) 8.5 0.0-12.0 % Eosinophils (%) (Auto) 0.1 0.0-7.0 % Basophils (%) (Auto) 0.4 0.0-2.0 % Neutrophils # (Auto) 4.7 1.6-8.6 10 ^3/uL Lymphocytes # (Auto) 1.8 0.4-5.4 10 ^3/uL Monocytes # (Auto) 0.6 0-1.3 10 ^3/uL Eosinophils # (Auto) 0 0-0.8 10 ^3/uL Basophils # (Auto) 0 0-0.2 10 ^3/uL Nucleated Red Blood Cells 0.0 % Urine Color Yellow Yellow Urine Clarity Clear Clear Urine pH 5.5 5.0-9.0 Urine Specific [place] 1.017 1.001-1.035 Urine Protein Negative Negative Urine Ketones 1+ H Negative Urine Blood 1+ H Negative /uL Urine Nitrite Negative Negative Urine Bilirubin Negative Negative Urine Urobilinogen Normal Negative mg/dL Urine Leukocyte Esterase Negative Negative /uL Urine RBC 5 0 - 4 /hpf Urine Microscopic WBC 4 0-5 /HPF Urine Squamous Epithelial Cells Few <5 /hpf Urine Bacteria None seen None Seen /hpf Urine Mucus Few None Seen Urine Glucose Normal Normal mg/dL Sodium Level 137 136-145 mmol/L Potassium Level 4.1 3.5-5.1 mmol/L Chloride Level 100 98-107 mmol/L Carbon Dioxide Level 30 20-31 mmol/L Anion Gap 7 5-15 Blood Urea Nitrogen 10 9-23 mg/dL Creatinine 0.83 0.550-1.02 mg/dL Glomerular Filtration Rate Calc 80 >90 mL/min BUN/Creatinine Ratio 12.0 10.0-20.0 Serum Glucose 95 74-106 mg/dL Calcium Level 10.1 8.7-10.4 mg/dL Total Bilirubin 0.7 0.2-1.0 mg/dL Aspartate Amino Transferase (AST) < 8 L 13-40 U/L Alanine Aminotransferase (ALT) 15 7-40 U/L Alkaline Phosphatase 132 H 46-116 U/L Total Protein 7.5 5.7-8.2 g/dL Albumin 4.8 3.2-4.8 g/dL Lipase 28 12-53 U/L Assessment Assessment: Probable Opiate induced constipation GERD Hypertension Chronic back pain Multiple shoulder surgeries Grade 2 cystocele status post repair December [address] abdomen/pelvis shows distended gallbladder. Right upper quadrant ultrasound negative. Small-bowel series pending Rectal exam completed, external hemorrhoids, rectal vault empty, no masses felt Plan: Follow up with a small bowel series Consider magnesium citrate for constipation Pantoprazole 40 mg OD DC Traer, patient already has Dilaudid pump Outpatient GI workup including colonoscopy - last colonoscopy more than 5 years back Avoid opiates Follow up with urine drug screen Outpatient tablet Movantik for opiate induced constipation Plan discussed with patient in which all questions have been answered Case discussed with Dr. Haji Plan discussed with: Patient, Other (Nurse ) VIDYA KEARNEY RESIDENT Apr 05, 2024 14:48
[2024-04-05] MEDS ORDERED: GASTROGRAFIN 120 ML SOL ONE (15:00)
[2024-04-05 16:24] VITALS: BP 150/76; PULSE 100; RESP 20; TEMP 98; O2SAT 98
--- NOTE | 2024-04-05 16:38 | DVH ---
Procedure: XY SMALL BOWEL SERIES-W GASTROGRA Reason for study/Clinical History: Hyperactive bowel sounds, constipation, right lower quadrant Comparison Study: None available at time of dictation. Technique: Single contrast small bowel series performed. FINDINGS/IMPRESSION: Initial certified ophthalmic medical technician view is remarkable for mild constipation. Otherwise, no acute process identified. Contrast is identified within the colon by 1 hour. This represents a normal small bowel transit time .
[2024-04-05] MEDS: POLYETHYLENE GLYCOL 17 GM PWDR PO SCH (17:35)
[2024-04-05 20:00] VITALS: BP 145/73; PULSE 96; RESP 18; TEMP 98; O2SAT 99
[2024-04-05 21:46] LABS: Cannabinoid Screen, Urine Pos (NEGATIVE)
[2024-04-05 21:48] LABS: Amphetamine Screen, Urine Neg (NEGATIVE); Barbiturate Scree,Urine Neg (NEGATIVE); Benzodiazephine Screen, Urine Neg (NEGATIVE); Cocaine Screen, Urine Neg (NEGATIVE); Opiate Scree,Urine Pos (NEGATIVE); Phencyclidine Screen, Urine Neg (NEGATIVE)
[2024-04-05 21:58] VITALS: PULSE 73; RESP 18; O2SAT 93
[2024-04-05 22:00] VITALS: BP 152/79; PULSE 73; RESP 18; TEMP 98.2; O2SAT 93
[2024-04-05] MEDS ORDERED: LACTULOSE 20Gm/30ML SOLN PO SCH (22:00)
[2024-04-05] MEDS: ACETAMINOPHEN 325 MG TAB PO PRN (22:29)
[2024-04-05] MEDS: TEMAZEPAM 15 MG CAP PO PRN (22:39)
[2024-04-06 01:00] VITALS: BP 108/48; PULSE 53; RESP 18; TEMP 98.1; O2SAT 99
[2024-04-06 05:00] VITALS: BP 120/57; PULSE 61; RESP 18; TEMP 98.1; O2SAT 100
[2024-04-06 06:26] LABS: Basophils # (auto) 0 10 ^3/uL (0-0.2); Basophils % (auto) 0.4 % (0.0-2.0); Eosinophils # (auto) 0 10 ^3/uL (0-0.8); Eosinophils % (auto) 0.8 % (0.0-7.0); Hematocrit 44.8 % (36.0-46.0); Hemoglobin 15.4 g/dL (12.2-16.2); Lymphocytes # (auto) 1.6 10 ^3/uL (0.4-5.4); Mean Corpuscular Hemoglobin 29.8 pg (28.0-32.0); Mean Corpuscular Hgb Conc. 34.3 g/dL (32.0-36.0); Mean Corpuscular Volume 86.8 fL (80.0-100.0); Monocytes # (auto) 0.5 10 ^3/uL (0-1.3); Monocytes % (auto) 8.8 % (0.0-12.0); Neutrophils # (auto) 3.5 10 ^3/uL (1.6-8.6); Nucleated Red Blood Cells % 0.2 %; Platelet Count (auto) 220 10^3/uL (140-450); Red Blood Cells 5.16 10^6/uL (4.0-5.20); White Blood Cell 5.7 10^3/uL (4.4-10.8)
[2024-04-06 06:39] LABS: Chloride 104 mmol/L (98-107); Sodium 138 mmol/L (136-145)
[2024-04-06 06:40] LABS: Anion Gap 9 (5-15); Calcium 9.7 mg/dL (8.7-10.4); Carbon Dioxide 25 mmol/L (20-31)
[2024-04-06 06:45] LABS: BUN/Creatinine Ratio 19.7 (10.0-20.0); Blood Urea Nitrogen 13 mg/dL (9-23); Glucose 80 mg/dL (74-106); Magnesium 2.1 mg/dL (1.6-2.6)
[2024-04-06 06:47] LABS: Potassium 3.3 mmol/L (3.5-5.1)
[2024-04-06 08:36] VITALS: BP 134/70; PULSE 65; RESP 17; TEMP 98; O2SAT 95
[2024-04-06] MEDS ORDERED: POLY335015 PO (11:13)
[2024-04-06] MEDS ORDERED: NALO1TAB4 PO (11:13)
--- NOTE | 2024-04-06 11:14 | DVHPN2 ---
Reviewed: Care Plan, H&P, Labs, Medications, Previous Orders, Radiology Changes from previous H/P or p: No Changes Objective Vitals Vital Signs Date Time Temp Pulse Resp B/P (MAP) Pulse Ox O2 Delivery O2 Flow Rate FiO2 04/06/24 08:36 98.0 65 17 134/70 (91) 95 98.0 04/06/24 08:00 Room Air* 0 21 Intake/Output Intake and Output 04/06/24 07:00 Intake Total 875 ml Balance 875 ml Intake Oral 800 ml IV Total 75 ml # Bowel Movements 1 Medications Current Medications Medications Dose Ordered Sig/Lien Route Start Time Stop Time Status Last Admin Dose Admin Temazepam 15 mg QHSP PRN PO 04/04/24 19:00 04/05/24 22:39 15 MG Ondansetron HCl 4 mg Q4HP PRN IV 04/04/24 19:00 04/04/24 21:45 4 MG Acetaminophen 650 mg Q6HP PRN PO 04/04/24 19:00 04/06/24 05:58 650 MG Polyethylene Glycol 17 gm DAILY PO 04/05/24 15:00 04/06/24 10:33 17 GM Laboratory Results Laboratory Tests 04/06/24 05:42 Chemistry Test 04/06/24 05:42 Calcium Level 9.7 mg/dL (8.7-10.4) Magnesium Level 2.1 mg/dL (1.6-2.6) Urinalysis Test 04/05/24 01:28 Urine Color Yellow (Yellow) Urine Clarity Clear (Clear) Urine pH 5.5 (5.0-9.0) Urine Specific [place] 1.017 (1.001-1.035) Urine Protein Negative (Negative) Urine Ketones 1+ (Negative) H Urine Blood 1+ /uL (Negative) H Urine Nitrite Negative (Negative) Urine Bilirubin Negative (Negative) Urine Urobilinogen Normal mg/dL (Negative) Urine Leukocyte Esterase Negative /uL (Negative) Urine RBC 5 /hpf (0 - 4) Urine Microscopic WBC 4 /HPF (0-5) Urine Squamous Epithelial Cells Few /hpf (<5) Urine Bacteria None seen /hpf (None Seen) Urine Mucus Few (None Seen) Urine Glucose Normal mg/dL (Normal) Labs and/or images reviewed: Labs reviewed by me, Image(s) reviewed by me Assessment/Plan Assessment/Plan Acute abdominal pain possibly secondary to opioid induced constipation: Lactulose CT abdomen pelvis negative gallbladder ultrasound negative MiraLax, GI consult by Dr. Nellie Haji appreciated Hypertension Hypercholesterolemia Depression Chronic back pain History of multiple shoulder surgeries Grade 2 cystocele status post repair December [address] Lico Tate Time spent 45 minutes Plan discussed with: Patient Date of Service: Apr 06, 2024 Billing Provider: ALBERTO CASE MD Common Visit Codes: 96982-[id number] INP/OBS CARE(HIGH) ALBERTO CASE MD Apr 06, 2024 11:14
--- NOTE | 2024-04-06 11:20 | DVHDS2 ---
Discharge Summary Date of Admission Apr 04, 2024 at 18:46 Date of Discharge: Apr 06, 2024 Admitting Diagnosis Constipation Wounds: none Labs/Diagnostic Data: Laboratory Results Test 04/06/24 05:42 04/05/24 01:28 04/04/24 13:11 White Blood Count 5.7 10^3/uL (4.4-10.8) Red Blood Count 5.16 10^6/uL (4.0-5.20) Hemoglobin 15.4 g/dL (12.2-16.2) Hematocrit 44.8 % (36.0-46.0) Mean Corpuscular Volume 86.8 fL (80.0-100.0) Mean Corpuscular Hemoglobin 29.8 pg (28.0-32.0) Mean Corpuscular Hemoglobin Concent 34.3 g/dL (32.0-36.0) Red Cell Distribution Width 13.0 % (11.8-14.3) Platelet Count 220 10^3/uL (140-450) Mean Platelet Volume 8.0 fL (6.9-10.8) Neutrophils (%) (Auto) 62.0 % (37.0-80.0) Lymphocytes (%) (Auto) 28.0 % (10.0-50.0) Monocytes (%) (Auto) 8.8 % (0.0-12.0) Eosinophils (%) (Auto) 0.8 % (0.0-7.0) Basophils (%) (Auto) 0.4 % (0.0-2.0) Neutrophils # (Auto) 3.5 10 ^3/uL (1.6-8.6) Lymphocytes # (Auto) 1.6 10 ^3/uL (0.4-5.4) Monocytes # (Auto) 0.5 10 ^3/uL (0-1.3) Eosinophils # (Auto) 0 10 ^3/uL (0-0.8) Basophils # (Auto) 0 10 ^3/uL (0-0.2) Nucleated Red Blood Cells 0.2 % Sodium Level 138 mmol/L (136-145) Potassium Level 3.3 mmol/L (3.5-5.1) Chloride Level 104 mmol/L (98-107) Carbon Dioxide Level 25 mmol/L (20-31) Anion Gap 9 (5-15) Blood Urea Nitrogen 13 mg/dL (9-23) Creatinine 0.66 mg/dL (0.550-1.02) Glomerular Filtration Rate Calc 99 mL/min (>90) BUN/Creatinine Ratio 19.7 (10.0-20.0) Serum Glucose 80 mg/dL (74-106) Calcium Level 9.7 mg/dL (8.7-10.4) Magnesium Level 2.1 mg/dL (1.6-2.6) Urine Color Yellow (Yellow) Urine Clarity Clear (Clear) Urine pH 5.5 (5.0-9.0) Urine Specific [place] 1.017 (1.001-1.035) Urine Protein Negative (Negative) Urine Ketones 1+ (Negative) Urine Blood 1+ /uL (Negative) Urine Nitrite Negative (Negative) Urine Bilirubin Negative (Negative) Urine Urobilinogen Normal mg/dL (Negative) Urine Leukocyte Esterase Negative /uL (Negative) Urine RBC 5 /hpf (0 - 4) Urine Microscopic WBC 4 /HPF (0-5) Urine Squamous Epithelial Cells Few /hpf (<5) Urine Bacteria None seen /hpf (None Seen) Urine Mucus Few (None Seen) Urine Glucose Normal mg/dL (Normal) Urine Opiates Screen Pos (NEGATIVE) Urine Fentanyl Screen Neg (NEGATIVE) Urine Barbiturates Screen Neg (NEGATIVE) Urine Phencyclidine Screen Neg (NEGATIVE) Urine Amphetamines Screen Neg (NEGATIVE) Urine Benzodiazepines Screen Neg (NEGATIVE) Urine Cocaine Screen Neg (NEGATIVE) Urine Cannabinoids Screen Pos (NEGATIVE) Total Bilirubin 0.7 mg/dL (0.2-1.0) Aspartate Amino Transferase (AST) < 8 U/L (13-40) Alanine Aminotransferase (ALT) 15 U/L (7-40) Alkaline Phosphatase 132 U/L (46-116) Total Protein 7.5 g/dL (5.7-8.2) Albumin 4.8 g/dL (3.2-4.8) Lipase 28 U/L (12-53) Other Laboratory Tests 04/06/24 05:42 Brief Hx & Hospital Course: 51-year-old female with a history of hypertension hypercholesterolemia depression chronic back pain on Dilaudid pump history of multiple shoulder surgeries history of cystocele repair December 2023 came in complaining of abdominal pain found to have constipation treated with lactulose MiraLax. GI consult by Dr. Nellie Haji CT abdomen pelvis negative for any gallbladder pathology or any acute pathology. Patient has a narcotic induced constipation and discharged home on MOVANTIK and MiraLax as recommended by the GI Consults/Reason for consult GI Dr. Nellie Haji Operations or Procedures CT abdomen pelvis without contrast Condition at Discharge: Fair Final Diagnosis/Problems List Acute abdominal pain possibly secondary to opioid induced constipation: Lactulose CT abdomen pelvis negative gallbladder ultrasound negative MiraLax, GI consult by Dr. Nellie Haji appreciated Hypertension Hypercholesterolemia Depression Chronic back pain History of multiple shoulder surgeries Grade 2 cystocele status post repair December 2023 COPD Discharge Disposition: Home Discharge Instruct/Medications Diet: Regular Activity: Light activity Follow Up/Referral: Follow up with your primary Dr in one week Medications: MOVANTIK MiraLax Transmitted to the pharmacy 35 (Time taken for discharge summary 35 minutes) Discharge Statement: "Patient was advised to return to the ER or call 911 if any headaches, dizziness, shortness of breath, chest pain, abdominal pain, bleeding, fevers, or worsening of medical condition. Patient was counseled about treatment plan, medications, possible side effects, patientverbalized understanding. All questions were answered to the best of my ability. This discharge took greater then 30 minutes in planning, reviewing documentation, counseling the patient, and discussing with other team members." ASSESSMENT ASSESSMENT Hospital Course Uneventful Assessment Acute abdominal pain possibly secondary to opioid induced constipation: Lactulose CT abdomen pelvis negative gallbladder ultrasound negative MiraLax, GI consult by Dr. Nellie Haji appreciated Hypertension Hypercholesterolemia Depression Chronic back pain History of multiple shoulder surgeries Grade 2 cystocele status post repair December 2023 COPD Date of Service: Apr 06, 2024 Billing Provider: ALBERTO CASE MD Common Visit Codes: 57734-WXM/OBS DISCH DAY >30min ALBERTO CASE MD Apr 06, 2024 11:20
[2024-04-06 13:00] VITALS: BP 146/77; PULSE 81; RESP 16; TEMP 97; O2SAT 95
[2024-04-06 16:35] VITALS: BP 122/65; PULSE 69; RESP 18; TEMP 98.2; O2SAT 92
--- NOTE | 2024-04-06 21:31 | DVHPN2 ---
Progress Note - Dictate Date Seen: Apr 06, 2024 (Late entryTime of visit was 2:30 p.m.) Medical Necessity Reason Pt with a Central, PICC or Fol: No Subjective No new complaints Patient has had multiple bowel movements She is resting comfortably and abdominal discomfort has improved vital signs Vital Sign Date Time Temp Pulse Resp B/P (MAP) Pulse Ox O2 Delivery O2 Flow Rate FiO2 04/06/24 16:35 98.2 69 18 122/65 (84) 92 98.2 04/06/24 08:00 Room Air* 0 21 Total Intake and Output 04/05/24 04/05/24 04/06/24 15:00 23:00 07:00 Intake Total 75 ml 800 ml Balance 75 ml 800 ml objective Well-developed well-nourished lady no acute distress General: Overweight, afebrile mucosae are moist Cardiovascular: Regular S1 and S2. No murmurs, gallops or rubs. No pedal edema Respiratory: Normal B/L air entry on room air. Clear lung sounds on auscultation Abdomen: Soft, no tenderness, nondistended, hyperactive bowel sounds, no rebound tenderness, no organomegaly, no masses Genitourinary: Deferred MSK/skin: Mobilizes 4 limbs. Skin is dry and warm Neurological: No motor, no sensitive deficits, normal speech. Pupils are isocoric and reactive. Psych/Mental Status: A/Ox4 laboratory and microbiology Laboratory Tests 04/06/24 05:42 Test 04/06/24 05:42 Range/Units Serum Glucose 80 74-106 mg/dL Problems(with codes): (1) Elevated alkaline phosphatase level (2) Abdominal pain (3) Acute constipation (4) Chronic low back pain (5) Marijuana use (6) Chronic narcotic use Prognosis Plan Small-bowel follow-through x-ray did not show any obstruction Patient has had multiple bowel movements Discharge planning is in progress Advance diet as tolerated Patient was advised to follow up in my office as an outpatient She was counseled about discontinuing marijuana and cutting back on narcotics We can use Movantik 3 mg p.o. daily for narcotic induced constipation if it persists Increase fluid and fiber intake and stool softeners Outpatient follow up with GI service for elective colonoscopy Plan discussed with: Patient MITA TEJADA MD Apr 06, 2024 21:31
== END 2024-04-06 17:34 | disposition home or self-care (01) | DRG 392 ==
LOC: ER 11:24 → EDBD 11:24 → OVERFLOW 18:46 → ER 18:47 → WEST WING 04-05 21:33
PROVIDERS: ADMIT Nurse Practitioner; ATTEND Family Medicine
DX: K59.03 Drug induced constipation (principal); K21.9 Gastro-esophageal reflux disease without esophagitis; I10 Essential (primary) hypertension; J44.9 Chronic obstructive pulmonary disease, unspecified; E78.00 Pure hypercholesterolemia, unspecified; F32.A Depression, unspecified; G89.29 Other chronic pain; K82.8 Other specified diseases of gallbladder; M54.9 Dorsalgia, unspecified; N81.10 Cystocele, unspecified; Z79.891 Long term (current) use of opiate analgesic; Z79.82 Long term (current) use of aspirin; Z79.899 Other long term (current) drug therapy
CPT/HCPCS: 36415; 74176; 74250; 76705; 80048; 80053; 80307; 81001; 83690; 83735; 85025; 93005; 96361; 96365; 96374; 96375; 99291; G0378; J1885; J2405

== ENCOUNTER 2024-08-25 15:51 | Outpatient (CLI) | payer MEDICARE, OTHER, MEDICAID ==
[~2024-08-25 15:51] MED LIST changes: +NALO1TAB4 PO; +POLY335015 PO
[2024-08-25 15:54] LABS: Urine Bacteria None Seen /hpf (None Seen)
[2024-08-25 16:11] LABS: Urine Blood Negative /uL (Negative); Urine Clarity Clear (Clear); Urine Color Light-Yellow (Yellow); Urine Protein, UAD Negative (Negative); Urine Specific Gravity 1.013 (1.001-1.035); Urine Squamous Epithelial Cell FEW /hpf (<5); Urine Urobilinogen Normal (Negative); Urine WBC < 1 /HPF (0-5)
== END 2024-08-25 17:00 | disposition home or self-care (01) ==
LOC: LAB 15:51
PROVIDERS: ATTEND Urology
DX: N39.0 Urinary tract infection, site not specified (principal)
CPT/HCPCS: 81001; 87086

== ENCOUNTER 2024-10-31 11:24 | Outpatient (CLI) | payer MEDICARE, OTHER, MEDICAID ==
[2024-10-31 12:46] LABS: Hematocrit 51.7 % (36.0-46.0); Hemoglobin 17.5 g/dL (12.2-16.2); Mean Corpuscular Hemoglobin 29.6 pg (28.0-32.0); Mean Corpuscular Volume 87.5 fL (80.0-100.0); Nucleated Red Blood Cells % 0.2 %
[2024-10-31 12:51] LABS: Urine Protein, UAD Negative (Negative)
[2024-10-31 13:16] LABS: Alanine Aminotransferase 14 U/L (7-40); Albumin 4.8 g/dL (3.2-4.8); Anion Gap 8 (5-15); BUN/Creatinine Ratio 11.9 (10.0-20.0); Blood Urea Nitrogen 10 mg/dL (9-23); Calcium 9.8 mg/dL (8.7-10.4); Carbon Dioxide 26 mmol/L (20-31); Chloride 104 mmol/L (98-107); Glucose 100 mg/dL (74-106); Potassium 4.4 mmol/L (3.5-5.1); Sodium 138 mmol/L (136-145); Total Protein 7.4 g/dL (5.7-8.2); Triglycerides 75 mg/dL (< 150)
[2024-10-31 13:17] LABS: Bilirubin, Total 0.4 mg/dL (0.2-1.0)
[2024-10-31 13:19] LABS: Alkaline Phosphatase 140 U/L (46-116); Cholesterol 269 mg/dL (< 200); HDL Cholesterol 88 mg/dL (40-59)
== END 2024-10-31 17:00 | disposition home or self-care (01) ==
LOC: LAB 11:24
PROVIDERS: ATTEND Internal Medicine
DX: I10 Essential (primary) hypertension (principal); M65.4 Radial styloid tenosynovitis [de Quervain]; Z79.899 Other long term (current) drug therapy
CPT/HCPCS: 36415; 80053; 80061; 81001; 82306; 84439; 84443; 85025; 85652

== ENCOUNTER 2024-11-10 15:29 | Outpatient (CLI) | payer MEDICARE, OTHER, MEDICAID ==
[2024-11-10 15:44] LABS: Urine Protein, UAD Negative (Negative)
== END 2024-11-10 17:00 | disposition home or self-care (01) ==
LOC: LAB 15:29
PROVIDERS: ATTEND Urology
DX: N39.0 Urinary tract infection, site not specified (principal)
CPT/HCPCS: 81001; 87086; 87088; 87186

== ENCOUNTER 2024-11-22 09:56 | Day surgery (SDC) | payer MEDICARE, OTHER ==
[2024-11-17 12:49] LABS: Hematocrit 48.7 % (36.0-46.0); Hemoglobin 16.5 g/dL (12.2-16.2); Mean Corpuscular Hemoglobin 30.0 pg (28.0-32.0); Mean Corpuscular Volume 88.3 fL (80.0-100.0); Nucleated Red Blood Cells % 0.0 %
[2024-11-17 12:51] LABS: Urine Protein, UAD Negative (Negative)
[2024-11-17 13:03] LABS: INR 0.98 (0.9-1.15); Partial Thromboplastin Time 27.6 SEC (24.5-34.5); Prothrombin Time 10.4 sec (9.3-11.8)
[2024-11-17 13:14] LABS: Alanine Aminotransferase 12 U/L (7-40); Anion Gap 7 (5-15); BUN/Creatinine Ratio 10.7 (10.0-20.0); Blood Urea Nitrogen 9 mg/dL (9-23); Calcium 9.9 mg/dL (8.7-10.4); Carbon Dioxide 29 mmol/L (20-31); Chloride 103 mmol/L (98-107); Glucose 89 mg/dL (74-106); Potassium 4.5 mmol/L (3.5-5.1); Sodium 139 mmol/L (136-145); Total Protein 7.4 g/dL (5.7-8.2)
[2024-11-17 13:15] LABS: Albumin 4.5 g/dL (3.2-4.8); Alkaline Phosphatase 134 U/L (46-116)
[2024-11-17 13:16] LABS: Bilirubin, Total 0.7 mg/dL (0.2-1.0)
[~2024-11-22] VITALS: Ht 175.3 cm; Wt 86.2 kg
[~2024-11-22 09:56] MED LIST changes: -NALO1TAB4 PO; -POLY335015 PO
[2024-11-22] MEDS ORDERED: PROPOFOL 10 MG/ML 20 ML IV ONE (09:57)
[2024-11-22] MEDS ORDERED: fentaNYL CITRATE 100 MCG/2 ML VL ONE (11:30)
[2024-11-22] MEDS: CIPROFLOXACIN 400MG/200ML 200 ML IV ONE (11:43)
[2024-11-22] MEDS ORDERED: ONDANSETRON HCL 4 MG/2 ML VIAL ONE (11:55)
[2024-11-22 12:23] VITALS: PULSE 52; RESP 11; TEMP 97.5; O2SAT 96
--- NOTE | 2024-11-22 12:24 | DVHNC2 ---
Procedure - OPERATIVE REPORT Pre-op. Diagnosis: Stress Urinary Incontinence Intrinsic Sphincteric Deficiency Post-op. 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 Indications, risks, complications, alternatives and benefits of cystoscopy with injection of bulking agent were discussed with patient. All questions were encouraged and answered. Patient is aware of specific risks/complications inc luding but not limited to infection, bleeding, persistent urinary hematuria, urinary incontinence and urinary retention. Informed consent was obtained. Details of Procedure: Patient is taken to Operating suite and given appropriate anesthesia. After prepping and draping, the patient was placed in the lithotomy position. A 21 F rigid cystoscope was introduced and the bladder was emptied. Next, the scope was positioned in the urethra and injection of Coaptite (Bulking agent) at 4 thru 8 O'clock position using a long transurethral needle was performed. Fluoroscopy was utilized to confirm the proper placement of the radioopaque bulking agent. Coaptation of bladder neck was noted. Bladder was emptied. Patient tolerated the procedure well. Patient is awakened and taken to RR in stable condition. Specimens: None Complications: None Findings: Notes: DISPOSITION: Discharge to home after voided . RTC 2 weeks. NARAYAN LAYTON MD Nov 22, 2024 12:24
--- NOTE | 2024-11-22 12:25 | DVHDS2 ---
New Physician D'charge PN Admitting Diagnosis Admitting Diagnosis Stress urinary incontinence/ISD Discharge Diagnosis Same Operations or Procedures Trans urethral injection of Coaptite Reason(s) For Hospitalization Surgery Treatment Plan Discharge Condition of Discharge Good Disposition Home Discharge Instructions Diet: Regular Activity: Light activity Activity comment: As tolerated Medications: Given Follow Up Care Follow Up/Referral: II weeks Discharge Statement: "Patient was advised to return to the ER or call 911 if any headaches, dizziness, shortness of breath, chest pain, abdominal pain, bleeding, fevers, or worsening of medical condition. Patient was counseled about treatment plan, medications, possible side effects, patientverbalized understanding. All questions were answered to the best of my ability. This discharge took greater then 30 minutes in planning, reviewing documentation, counseling the patient, and discussing with other team members." NARAYAN LAYTON MD Nov 22, 2024 12:25
[2024-11-22] MEDS ORDERED: HYDROmorphone HCL 2 MG/ML VL/or syr IV PRN (12:30)
[2024-11-22] MEDS ORDERED: ACETAMINOPHEN IV 1000 MG/100ML (10MG/ML) IV PRN (12:30)
[2024-11-22] MEDS ORDERED: ONDANSETRON HCL 4 MG/2 ML VIAL IV PRN (12:30)
[2024-11-22 13:08] VITALS: BP 120/87; PULSE 60; RESP 15; O2SAT 97
--- NOTE | 2024-11-22 13:20 | DVH ---
C-ARM FLUOROSCOPY: PROCEDURE: TURP FLUOROSCOPY TIME: 7.4 sec DAP: 0.99 mgy FINDINGS: Spot intraoperative C arm radiographs demonstrating TURP. IMPRESSION: Please refer to surgical report for detailed findings.
--- NOTE | 2024-11-22 13:20 | DVH ---
C-ARM FLUOROSCOPY: PROCEDURE: TURP FLUOROSCOPY TIME: 7.4 sec DAP: 0.99 mgy FINDINGS: Spot intraoperative C arm radiographs demonstrating TURP. IMPRESSION: Please refer to surgical report for detailed findings.
== END 2024-11-22 13:30 | disposition home or self-care (01) ==
LOC: SUR 09:56
PROVIDERS: ATTEND Urology
DX: N36.42 Intrinsic sphincter deficiency (ISD) (principal); N39.3 Stress incontinence (female) (male); N39.41 Urge incontinence; I10 Essential (primary) hypertension; M41.9 Scoliosis, unspecified; K21.9 Gastro-esophageal reflux disease without esophagitis; Z79.899 Other long term (current) drug therapy; Z98.51 Tubal ligation status; Z98.890 Other specified postprocedural states
CPT/HCPCS: 36415; 51715; 72170; 80053; 81001; 85025; 85610; 85730; 87086; J0744; J2405; J2704; J3010; L8606; 76000